=== PATIENT | male | born 1940 | race Caucasian/White ===

== ENCOUNTER → 2025-02-19 08:51 | Outpatient (REF) | payer MEDICARE, OTHER, SELFPAY | LOC: RCS 08:51 | PROVIDERS: ATTENDING PHYSICIAN Internal Medicine Cardiovascular Disease; FAMILY PHYSICIAN Family Medicine | DX: I35.0 Nonrheumatic aortic (valve) stenosis (principal); R06.09 Other forms of dyspnea | CPT/HCPCS: 93017; 93350 ==

== ENCOUNTER 2025-02-22 08:05 | Day surgery (SDC) | payer MEDICARE, OTHER, SELFPAY ==
[2025-02-22] VITALS (23 sets, daily range): BP systolic 100–152; BP diastolic 58–132; BMI 29.2
[2025-02-22 08:45] LABS: Glucose - Point of Care 114 mg/dl (70-99)
[2025-02-22 08:51] LABS: INR 1.68
--- NOTE | 2025-02-22 12:47 | ITS.CL.CATH ---
Senior Environmental Scientist - Catheterization
Cardiac Catheterization
Procedure Report:
CARDIAC CATHETERIZATION REPORT
Date of Procedure: 02/22/2025
Referring: Jesu Lara D.O.
Indication: Aortic valve stenosis, abnormal dobutamine stress echocardiogram, heart failure with reduced ejection fraction.
PROCEDURE:
1. Right heart catheterization.
2. Coronary angiography.
3. Left heart catheterization.
4. Dobutamine challenge.
5. Successful intravascular ultrasound of the ostial left main coronary artery.
A total of [ ] minutes of procedural/moderate sedation was utilized. An independent medical authorization specialist was present to assist with and help manage the patient's level of consciousness and physiologic status.
ACCESS:
1. 6 Polish right common femoral artery using a modified Seldinger technique with a micropuncture kit under ultrasound guidance. Ultrasound image obtained.
2. 6 Polish right common femoral vein using a modified Seldinger technique with a micropuncture kit under ultrasound guidance. Ultrasound image obtained.
CATHETERS:
1. 6 Polish thermodilution balloon wedge.
2. 5 Polish JL 4.
3. 5 Polish JR4.
4. 6 Polish JL 4 guiding catheter.
HEMODYNAMIC DATA
Weight (kg): 97.5
AO (s/d/x, mmHg): 138/60/93
LV (s/x, mmHg): 158/26
PCWP (a/v/x, mmHg): 35/50/32
PA (s/d/x, mmHg): 65/38/47
RV (s/x, mmHg): 65/17
RA (a/v/x, mmHg): 24/20/18
SVC SvO2 (%): 57.5
IVC SvO2 (%): Not obtained.
RA SvO2 (%): Not obtained.
RV SvO2 (%): Not obtained.
PA SvO2 (%): 54.7
SaO2 (%): 97.5
Hbg (g/dL): 15.0
DARLING
CO (L/min): 3.59
CI (L/min/m2): 1.63
Thermodilution
CO (L/min): Not performed.
CI (L/min/m2): Not performed.
TPG (mmHg): 15
PVR (Castellon Units): 4.18
SVR (dynes*seconds*cm^-5): 1672
AVO2 Diff (Volume %): 8.73
AV gradient (x, mmHg): 22.0
AV area (cm2): 0.58
MV gradient (x, mmHg): Not obtained.
MV area (cm2): Not obtained.
LEFT VENTRICULOGRAPHY: Not performed.
AORTOGRAPHY: Not performed.
CORONARY ANGIOGRAPHY
Dominance: Right.
Left Main: Extremely long, trifurcating vessel. There is an ill-defined, 40-50% lesion in the ostium of the vessel with catheter dampening on engagement. There is an additional 20-30% lesion in the distal half of the left main coronary artery.
LAD: Normal size vessel giving rise to a large single diagonal which bifurcates into 2 daughter vessels, the more medial of which parallels the true LAD. There is no coronary artery disease.
Ramus: Medium size vessel with no coronary artery disease.
Circumflex: Normal size, nondominant vessel giving rise to a small obtuse marginal before terminating as a small left posterolateral branch. There is no coronary artery disease.
RCA: Large size, dominant vessel with a large posterolateral arcade that supplies the majority of the inferolateral wall. There is a densely calcified, 80% lesion in the ostium of the vessel. The remainder of the vessel is free of disease.
INTERVENTIONS
1. Successful intravascular ultrasound of the left main coronary artery.
2. Successful dobutamine challenge to assess myocardial reserve and aortic valve stenosis severity.
Narrative:
The decision was made to perform intracoronary imaging. The diagnostic catheter was removed over a wire and exchanged for 6 Polish JL 4 guiding catheter. The guiding catheter was advanced into the ascending aorta and seated in the left main
coronary artery. Immediate dampening of the catheter was observed. Additional heparin was given to obtain an ACT greater than 250 seconds. After crossing the lesion with a coronary wire, an IVUS catheter was advanced through the guiding catheter
and into the ostium of the artery. Ring down was performed once the imaging crystal was no longer inside of the guiding catheter. The catheter was disengaged to allow for full imaging of the ostium of the artery and to allow adequate blood flow
into the coronary. The IVUS catheter was advanced into the distal left main coronary artery. Intravascular ultrasound was performed in a retrograde fashion using a slow pullback. Intracoronary imaging demonstrated several areas of atherosclerosis
with notable narrowing in the true ostium of the vessel. Minimal luminal area was documented at 5.7 mm�.
Given the borderline findings of aortic valve stenosis with low ejection fraction in the absence of coronary artery disease, the decision was made to proceed with dobutamine challenge.
Dobutamine was started at 5 mcg/kg/min. After 5 minutes, pulmonary artery pressure, cardiac output/index and LV/aortic pressure gradients were measured.
Dobutamine was increased to 10 mcg/kg/min. After 5 minutes, measurements were repeated.
Dobutamine was increased to 20 mcg/kg/min. After 5 minutes, measurements were repeated.
Dobutamine was turned off. Pullback of the dual-lumen catheter was performed confirming fidelity of measurement. Findings are detailed below.
DOBUTAMINE CHALLENGE
Dobutamine 5 mcg/kg/min:
CO (L/min): 3.9
CI (L/min/m2): 1.8
AV gradient (x, mmHg): 25.2
AV area (cm2): 0.85
Dobutamine 10 mcg/kg/min:
CO (L/min): 4.71
CI (L/min/m2): 2.14
AV gradient (x, mmHg): 32.0
AV area (cm2): 0.70
Dobutamine 20 mcg/kg/min:
CO (L/min): 5.22
CI (L/min/m2): 2.37
AV gradient (x, mmHg): 34.0
AV area (cm2): 0.75
Closure Device: Manual pressure for the femoral artery and vein.
Radiation dose (mGy): 687
DAP (cm2.Gy): 38.092
Fluoroscopy time (minutes): 11.5
CONCLUSIONS:
1. Right dominant circulation with a densely calcified, 80% lesion in the ostium of the RCA and a poorly visualized, 40-50% ostial left main coronary artery lesion with dampening on catheter engagement and minimal luminal area of 5.7 mm� on
intravascular ultrasound.
2. Severely elevated filling pressures (LVEDP = 26 mmHg, PCWP = 32 mmHg at 97.5 kg).
3. Moderate to severe low-flow, low gradient aortic valve stenosis with myocardial reserve (mean gradient 34 mmHg, aortic valve area 0.75 cm�, cardiac index 2.37 L/min/m� at dobutamine 20 mcg/kg/min).
4. 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
RECOMMENDATIONS:
1. Expectant management after cardiac catheterization via right common femoral approach.
2. Limited weight bearing for one week.
3. Difficult situation as the patient has multiple reasons why his cardiac function may have fallen off. We will start with TAVR CTA to assess if he is a candidate for percutaneous valve replacement.
4. If he is a candidate, we we will discuss revascularization strategy. The patient is an ideal candidate for left main coronary artery PCI given the ostial nature of his disease. He would also require Shockwave and PCI of the ostial RCA.
5. If he is not a candidate for transcatheter aortic valve, we will discuss surgical options for valve versus strictly a revascularization strategy.
6. Aggressive secondary prevention with high-dose, high potency statin.
7. Continue aggressive diuresis as his blood pressure will permit.
8. OMT/GDMT as hemodynamics will tolerate.
Copy to: Jesu Lara D.O., Joe Smith M.D.
Morales Sánchez DO, FACC, FACP
[2025-02-22 13:28] LABS: ACT-LR - POC 279 Seconds (116-155)
[2025-02-22 14:34] LABS: ACT-LR - POC 232 Seconds (116-155)
[2025-02-22 15:04] LABS: ACT-LR - POC 218 Seconds (116-155)
[2025-02-22 15:09] LABS: ACT-LR - POC > 397 Seconds (116-155)
--- NOTE | 2025-02-22 15:10 | PTCARENOTE ---
RN spoke to Dr Sánchez in regards to ACT range for pulling sheaths. At [address] Sánchez ok with pulling both sheaths at 1500. Dr Sánchez requested a 30 minute hold. ACT 218 at 1500.
--- NOTE | 2025-02-22 15:23 | CONSULT.STRU ---
Consultation
-
Date/Time Consultation Requested: 02/22/2025
Date/Time Consultation Performed: 02/22/2025
Requesting Provider: Dr. Morales Sánchez
Performing Provider: SAULO Juárez
Reason for Consultation: CAD/Aortic stenosis
Patient History
Physicians
Family Physician: Dr. Joe Wolff
Outpatient Printing Plate Setter: Dr. Jesu Lara
Primary Printing Plate Setter: Dr. Jesu Lara
History of Present Illness
Mr. Laura is a very pleasant and well appearing 84yo male here today for cardiac cath as part of his workup for recent acute on chronic heart failure and . He started noticing significant JONES beginning the end of Dec and in January he was
hospitalized at [facility] with elevated INR (10.2) heart failure exacerbation. His echocardiogram on 01/20 was significant for EF: 43%, moderate MR, Severe PG/MG33.4/17.3, EL: 0.8, , Moderate AI, severe TR and PAP 47mmHg. He then underwent
a DSE on 02/19/2025 which showed EF 45-50% with increase to 60% with dobutamine and findings consistent with moderate . On cath today he was found to have significant disease. After speaking with Dr. Sánchez it was decided to proceed with CT TAVR
scan to assess candidacy for TAVR before proceeding with addressing CAD. Overall Mr. Laura remains active. He denies chest pain, palpitations, PND, orthopnea. He has only recently noted some peripheral edema.
Reviewed the pathophysiology of aortic stenosis with the patient and his . Explained the treatment options of SAVR/CABG and TAVR/PCI. Explained the TAVR evaluation process including follow up BMP, CT TAVR scan, CT surgery consult and Heart Team
discussion. Provided with script for BMP next week, script and appointment for CT TAVR, Consult appointment with Dr. Saravia and a copy of the TAVR education booklet with contact information. Allowed for and answered questions.
Past Medical History
Past Medical History: Arrhythmias (NSVT), Atrial Fib, CAD, CHF, JONES, GERD, HTN, Hypercholesterolemia, Hypothyroidism, NIDDM, Valvular Disease (Moderate MR, Severe , moderate AI, Severe TR) and Other (Neuropathy)
Past Surgical History
Past Surgical History: Other (PPM 2004, Gen change 2019, Cardiac ablation 2006, left toe amputation 2023)
Dental History
Regular dental care: [facility]
Family History
Mother: at Age (80s, cause unknown)
Father: at Age (76yo, COPD)
Social History
Alcohol: None
Drug: None
Tobacco: Non-Smoker
Personal:
Living: With Spouse
Employment: Retired (power truck driver)
Allergies
Allergy/AdvReac Type Severity Reaction Status Date / Time
ashley inhibitors Allergy Swelling Uncoded 02/22/25 08:33
lisinopril Allergy Swelling Uncoded 02/22/25 08:33
Home Medications
�Medication �Instructions �Recorded �Confirmed �Type
aspirin 81 mg chewable tablet 81 mg PO DAILY 02/22/25 02/22/25 History
atorvastatin 40 mg tablet 40 mg PO DAILY 02/22/25 02/22/25 History
esomeprazole magnesium 20 mg 20 mg PO DAILY 02/22/25 02/22/25 History
capsule,delayed release (Nexium)
furosemide 80 mg tablet 80 mg PO DAILY 02/22/25 02/22/25 History
latanoprost 0.005 % eye drops 1 drp ophthalmic (eye) QPM 02/22/25 02/22/25 History
levothyroxine 88 mcg capsule 88 mcg PO DAILY 02/22/25 02/22/25 History
metformin 500 mg tablet 500 mg PO BID 02/22/25 02/22/25 History
metoprolol succinate 50 mg 50 mg PO DAILY 02/22/25 02/22/25 History
tablet,extended release 24 hr
(Toprol XL)
spironolactone 25 mg tablet 12.5 mg PO DAILY 02/22/25 02/22/25 History
vitamins A,C,M-eoiu-zzzqft 2,148 2 tab PO BID 02/22/25 02/22/25 History
mcg-113 mg-45 mg-17.4 mg tablet
(PreserVision AREDS)
warfarin 5 mg tablet 2.5 mg PO Q OTHER DAY 02/22/25 02/22/25 History
warfarin 5 mg tablet 5 mg PO Q OTHER DAY 02/22/25 02/22/25 History
STS%
STS %: AVR/CAB.1%
Review of Systems
-
History Source: Patient and Family
General: Reports No Symptoms
HEENT: Reports No Symptoms
Respiratory: Reports JONES (last 2 months it is more noticable); Denies Cough or PND
Cardiac: Reports CAD and Edema (bilateral LE); Denies Chest Pain or Palpitations
Abdomen/GI: Reports Reflux and Indigestion; Denies Nausea, Vomiting or Diarrhea
: Reports No Symptoms; Denies Dysuria or Hematuria
Musculoskeletal: Reports No Symptoms
Skin: Reports No Symptoms
Neurological: Reports Other (neuropathy); Denies Headaches, Syncope or Dizzy
Vascular: Reports No Symptoms
Physical Exam
Vital Signs
Temp 97.8 F 02/22/25 07:55
Temp route: Oral 02/22/25 07:55
Pulse 72 02/22/25 14:15
Resp Rate 13 02/22/25 14:15
Blood pressure 129/76 02/22/25 14:00
Blood pressure extremity used: Left upper arm 02/22/25 07:55
Position: Sitting 02/22/25 07:55
MAP (cuff-Kaela Monitor) 92 02/22/25 14:00
SaO2 95 02/22/25 13:30
Oxygen Mode of Delivery Room air 02/22/25 07:55
Can the patient verbally communicate their pain? Yes 02/22/25 12:30
Actual Weight 97.522 kg 02/22/25 08:31
Body Mass Index (BMI) 29.2 02/22/25 08:31
Labs
PT 20.0 Sec (11.4-14.6) H 02/22/25 08:36
02/07/2025:
BUN/Creat: 23/1.34
GFR: 53
01/26/2025
H/H: 13.3/41.3
WBC: 10.5
Platelets: [id number]
Diagnostic Studies
02/19/2025 Dobutamine Stress Echocardiogram:
CONCLUSIONS
At rest, there is moderate aortic stenosis. Mildly reduced ejection fraction
at 45-50% with mild hypokinesis of the distal inferior and apical inferoseptal
wall.
With Dobutamine infusion, EF globally increases to
60% by visual estimation.
The wall motion abnormalities in the distal inferior and apical inferoseptal
thomson consistent with infarction. Additionally at high dose infusion, the
distal anteroseptal thomson appear hypokinetic consistent with ischemia.
At all infusion levels, findings are consistent with moderate aortic stenosis.
No prior study available for comparison.
02/22/2025 Cardiac Cath:
CORONARY ANGIOGRAPHY
Dominance: Right.
Left Main: Extremely long, trifurcating vessel. There is an ill-defined, 40-50% lesion in the ostium of the vessel with catheter dampening on engagement. There is an additional 20-30% lesion in the distal half of the left main coronary artery.
LAD: Normal size vessel giving rise to a large single diagonal which bifurcates into 2 daughter vessels, the more medial of which parallels the true LAD. There is no coronary artery disease.
Ramus:Medium size vessel with no coronary artery disease.
Circumflex: Normal size, nondominant vessel giving rise to a small obtuse marginal before terminating as a small left posterolateral branch. There is no coronary artery disease.
RCA: Large size, dominant vessel with a large posterolateral arcade that supplies the majority of the inferolateral wall. There is a densely calcified, 80% lesion in the ostium of the vessel. The remainder of the vessel is free of disease.
INTERVENTIONS
1. Successful intravascular ultrasound of the left main coronary artery.
2. Successful dobutamine challenge to assess myocardial reserve and aortic valve stenosis severity.
Narrative:
The decision was made to perform intracoronary imaging. The diagnostic catheter was removed over a wire and exchanged for 6 Ghanaian JL 4 guiding catheter. The guiding catheter was advanced into the ascending aorta and seated in the left main
coronary artery. Immediate dampening of the catheter was observed. Additional heparin was given to obtain an ACT greater than 250 seconds. After crossing the lesion with a coronary wire, an IVUS catheter was advanced through the guiding catheter
and into the ostium of the artery. Ring down was performed once the imaging crystal was no longer inside of the guiding catheter. The catheter was disengaged to allow for full imaging of the ostium of the artery and to allow adequate blood flow
into the coronary. The IVUS catheter was advanced into the distal left main coronary artery. Intravascular ultrasound was performed in a retrograde fashion using a slow pullback. Intracoronary imaging demonstrated several areas of atherosclerosis
with notable narrowing in the true ostium of the vessel. Minimal luminal area was documented at 5.7 mm�.
Given the borderline findings of aortic valve stenosis with low ejection fraction in the absence of coronary artery disease, the decision was made to proceed with dobutamine challenge.
Dobutamine was started at 5 mcg/kg/min. After 5 minutes, pulmonary artery pressure, cardiac output/index and LV/aortic pressure gradients were measured.
Dobutamine was increased to 10 mcg/kg/min. After 5 minutes, measurements were repeated.
Dobutamine was increased to 20 mcg/kg/min. After 5 minutes, measurements were repeated.
Dobutamine was turned off. Pullback of the dual-lumen catheter was performed confirming fidelity of measurement. Findings are detailed below.
Exam
General: Well Developed, Well Nourished, No Apparent Distress and Comfortable
HEENT: Normocephalic, Moist Mucous Membranes, PERRLA and EOMI
Neck: Trachea Midline
Respiratory: Clear; Negative Wheezes, Crackles or Rhonchi
Cardiac: S1/S2, Regular Rhythm and Murmur (Grade I_II/ FERNANDA)
GI: Soft, Non Tender, Non Distended and Normal Bowel Sounds
Rectal: Deferred by Provider
Skin: Warm and Dry
Neuro: AO x 3 and Nonfocal/Grossly Intact
Extremities: Lower Level Edema (trace left LE)
Psych: Calm
Assessment / Plan
-
Procedure Type:�CABG + AVR
Perioperative Outcome Estimate %
Operative Mortality 15.1%
Morbidity & Mortality 31.2%
Stroke 1.9%
Renal Failure 11.1%
Reoperation 3.95%
Prolonged Ventilation 21.9%
Deep Sternal Wound Infection 0.231%
Long Hospital Stay (>14 days) 22.3%
Short Hospital Stay (<6 days)* 11.4%
Severe Aortic stenosis:
����������� Continue evaluation for aortic stenosis as outpatient
����������� BMP next week at [facility]
����������� CT TAVR scan 03/08/2025 at
����������� CT surgery consult with Dr. Saravia� 03/18/2025
����������� Dental Clearance
����������� Heart team discussion at [facility]
Acute on Chronic HF:
Daily weights
Low Na diet
Diuresis per cardiology/ GDMT
CAD:
Heart healthy diet
Statin/ASA/BB
CT surgery evaluation and Heart team discussion- PCI vs CABG
Data Reviewed
-
EKG: Report Reviewed by me
Water Treatment Plant Supervisor: Report Reviewed by me, Discussed with Physician, Discussed with Patient and Discussed with Family
Echo: Report Reviewed by me, Discussed with Physician, Discussed with Patient and Discussed with Family
Labs: Labs Reviewed by me, Discussed with Patient and Discussed with Family
Old Records: Reviewed ([facility] admission summary, cardiology consult notes)
Total Time Spent with Patient (in minutes): 35
== END 2025-02-22 18:27 | disposition home or self-care (01) ==
LOC: CATH 08:05
PROVIDERS: ATTENDING PHYSICIAN Internal Medicine Cardiovascular Disease
DX: I11.0 Hypertensive heart disease with heart failure (principal); I50.22 Chronic systolic (congestive) heart failure; I27.20 Pulmonary hypertension, unspecified; I25.10 Atherosclerotic heart disease of native coronary artery without angina pectoris; R94.39 Abnormal result of other cardiovascular function study; I08.2 Rheumatic disorders of both aortic and tricuspid valves; G62.9 Polyneuropathy, unspecified; I47.20 Ventricular tachycardia, unspecified; E03.9 Hypothyroidism, unspecified; E11.9 Type 2 diabetes mellitus without complications; E78.00 Pure hypercholesterolemia, unspecified; I48.91 Unspecified atrial fibrillation; Z79.84 Long term (current) use of oral hypoglycemic drugs; Z79.82 Long term (current) use of aspirin; Z79.890 Hormone replacement therapy; Z79.899 Other long term (current) drug therapy; Z88.8 Allergy status to other drugs, medicaments and biological substances
CPT/HCPCS: 82962; 85347; 85610; 92978; 93460; 93463; C1753; C1769; C1894; Q9967

== ENCOUNTER → 2025-03-08 08:36 | Outpatient (REF) | payer MEDICARE, OTHER, SELFPAY | LOC: RAD 08:36 | PROVIDERS: ATTENDING PHYSICIAN Nurse Practitioner Adult Health; FAMILY PHYSICIAN Family Medicine | DX: I35.0 Nonrheumatic aortic (valve) stenosis (principal) | CPT/HCPCS: 74174; 75572; Q9967 ==

== ENCOUNTER 2025-04-01 09:41 | Day surgery (SDC) | payer MEDICARE, OTHER, SELFPAY ==
[2025-04-01] VITALS (24 sets, daily range): BP systolic 128–170; BP diastolic 62–90
[2025-04-01] MEDS: NSS 1000 IV ×2 (10:40→16:05)
[2025-04-01 10:43] LABS: Blood Urea Nitrogen 30 mg/dl (9-20); Calcium 9.7 mg/dl (8.4-10.2); Carbon Dioxide 32 mmol/L (22-30); Chloride 101 mmol/L (98-107); Glucose 125 mg/dl (70-99); Potassium 4.4 mmol/L (3.5-5.1); Sodium 141 mmol/L (135-145); eGFR 49.56
[2025-04-01 10:44] LABS: PT 17.4 Sec (11.4-14.6)
--- NOTE | 2025-04-01 12:58 | PTCARENOTE ---
Report given to Quinn SHAFFER
--- NOTE | 2025-04-01 15:41 | ITS.CL.ANGIO ---
Handyman - Angioplasty
Angioplasty
Procedure Report:
CARDIAC CATHETERIZATION REPORT
Date of Procedure: 04/01/2025
Referring: Jesu Lara D.O.
INDICATION: Staged PCI prior to TAVR, ischemic cardiomyopathy, heart failure with reduced ejection fraction.
PROCEDURE:
1. Coronary angiography.
2. Successful IVUS guided PCI of the ostial left main coronary artery.
3. Successful intracoronary lithotripsy of the ostial right coronary artery.
4. Successful IVUS guided PCI of the ostial right coronary artery.
A total of 78 minutes of procedural/moderate sedation was utilized. An independent chief medical officer was present to assist with and help manage the patient's level of consciousness and physiologic status.
ACCESS:
1. 7 [place] right common femoral artery using a modified Seldinger technique with a micropuncture kit under ultrasound guidance.
CATHETERS:
1. 7 [place] JL 4 guiding catheter.
2. 7 [place] JR4 guiding catheter.
HEMODYNAMIC DATA
Weight (kg): 94.0
AO (s/d/x, mmHg): 152/71/108
LV (s/x mmHg): Not obtained.
LEFT VENTRICULOGRAPHY: Not performed.
CORONARY ANGIOGRAPHY
Dominance: Right.
Left Main: Extremely long, trifurcating vessel. There is a 70% lesion in the ostium of the left main coronary artery. There is an additional 20-30% lesion in the distal half of the left main coronary artery.
LAD: Normal size vessel giving rise to a large single diagonal which bifurcates into 2 daughter vessels, the more medial of which parallels the true LAD. There is no coronary artery disease.
Ramus: Medium size vessel with no coronary artery disease.
Circumflex: Normal size, nondominant vessel giving rise to a small obtuse marginal before terminating as a small left posterolateral branch. There is no coronary artery disease.
RCA: Large size, dominant vessel with a large posterolateral arcade supplying the majority of the inferolateral wall. There is a densely calcified, 80% lesion in the ostium of the RCA.
INTERVENTION(S)
1. Successful IVUS guided PCI of the 70% ostial left main coronary artery ([employer] [place] 4.5 x 12 BRIAN, postdilated with a 4.5 NC balloon) with reduction in stenosis to 0%, maintaining NITISH-3 flow.
2. Successful intracoronary lithotripsy of the densely calcified 80% ostial right coronary artery lesion (Shockwave 3.5 x 12 lithotripsy balloon).
3. Successful IVUS guided PCI of the 80% ostial RCA lesion ([employer] [place] 4.0 x 15 BRIAN, postdilated with a 4.0 x 12 NC balloon, followed by a 4.5 x 12 NC balloon to 16 oli) with reduction in stenosis to 10%, maintaining NITISH-3 flow.
Narrative:
The decision was made to proceed with percutaneous coronary intervention. The 7Fr JL 4 guiding catheter was advanced to the aortic root and seated in the left main coronary artery, with immediate dampening of pressure. Additional heparin was given
and a Power Turn Flex wire was advanced into the distal LAD. The catheter was subsequently disengaged from the artery with normalization of pressure. A BMW wire was advanced into the left coronary cusp and curved into the ascending aorta to act as
a bumper wire.
The decision was made to perform intracoronary imaging. An IVUS catheter was advanced through the guiding catheter and into the ostium of the artery. Ring down was performed once the imaging crystal was no longer inside of the guiding catheter. The
IVUS catheter was advanced into the distal left main. Intravascular ultrasound was performed in a retrograde fashion using a slow pullback. Intracoronary imaging demonstrated moderate disease in the distal and mid vessel. There was a fibrotic
severe lesion in the ostium. Vessel measurements were obtained.
The decision was made to direct stent. A [employer] [place] 4.5 x 12 drug-eluting stent was advanced. Meticulous care was taken while positioning the stent, ensuring that the lesion was covered while the stent did not protrude into the aorta
too much. Once we were satisfied with our position, the stent was deployed at 12 atmospheres. The stent balloon was removed. A 4.5 x 8 noncompliant balloon was advanced into the stent and the stent was postdilated to 14 atmospheres.
IVUS was repeated, demonstrating excellent stent apposition and confirming excellent placement of the stent with the stent terminating immediately after entering the aorta. There was a small area of stent underexpansion in the mid section. The 4.5
x 8 noncompliant balloon was readvanced into the ostial left main stent and the stent was postdilated to 18 oli. The noncompliant balloon was withdrawn and the bumper wire had been removed which allowed a guide to sit in the left main coronary
artery. Angiography was performed in orthogonal views, confirming good stent expansion and an excellent angiographic result. The coronary wire was withdrawn and the guide was disengaged from the artery.
We then turned our attention to the ostial RCA lesion. The 7 [place] JL 4 guiding catheter was removed over a wire and a 7Fr JR4 guiding catheter was advanced to the aortic root and seated in the right coronary artery. Additional heparin was given
and a Power Turn Flex wire was advanced into the distal RCA. A run-through wire was advanced into the right coronary cusp, again serving as a bumper wire.
The decision was made to proceed with plaque modification. A Shockwave 3.5 x 12 coronary lithotripsy balloon was advanced over the wire and into the ostial RCA lesion. The balloon was sterilely connected to the controller and prepped to negative
pressure. Meticulous care was taken while positioning the shockwave balloon. Once in satisfactory position, the balloon was inflated to 4 oli. After confirming good contact with the vessel wall, 10 pulses were delivered. After delivering 10
pulses, the balloon was inflated to 6 oli then deflated. The entire lesion was treated in a similar manner for total of 12 rounds.
The Shockwave balloon was withdrawn and the IVUS catheter was readvanced into the right coronary artery. IVUS was performed in retrograde fashion demonstrating a densely calcified lesion in the ostium of the vessel. Vessel sizing was performed.
The decision was made to direct stent. A [employer] [place] 4.0 x 15 drug-eluting stent was advanced. Meticulous care was taken while positioning the stent, ensuring that the lesion was covered and that the stent protruded into the aorta by
1�2 cells. Once we were satisfied with our position, the stent was deployed at 12 atmospheres. The stent balloon was removed. A 4.0 x 12 noncompliant balloon was advanced into the stent and the stent was postdilated to 16 atmospheres. Angiography
and cine angiography demonstrated dimpling of the stent, consistent with some underexpansion. A 4.5 x 12 noncompliant balloon was advanced and the underexpanded segment was postdilated to 16 oli with some improvement. IVUS was repeated, confirming
that there was some modest underexpansion in the densely calcified section of the vessel. The 4.5 x 12 noncompliant balloon was readvanced and the stent was postdilated to 18 oli. The noncompliant balloon was withdrawn.
Angiography was performed in orthogonal views, confirming good stent expansion and an excellent angiographic result with a 10% residual stenosis. The coronary wire was withdrawn and the guide was disengaged from the artery. The catheter was removed
over a standard J-wire.
Closure Device: The 7 [place] sheath was sutured in place for manual pressure to be applied after ACT is <180 seconds.
Radiation (mGy): 1217.57
DAP (cm2.Gy): 81.6826
Fluoroscopy time (minutes): 21.3
CONCLUSIONS
1. Right dominant circulation with a 70% lesion in the ostium of the left main coronary artery status post successful IVUS guided PCI ([employer] [place] 4.5 x 12 BRIAN, postdilated with a 4.5 NC balloon), a 20-30% lesion in the distal half of
the left main coronary artery and an 80%, densely calcified ostial right coronary lesion status post successful intracoronary lithotripsy (shockwave 3.5 x 12 lithotripsy balloon) and IVUS guided PCI ([employer] [place] 4.0 x 15 BRIAN, postdilated
with a 4.0 NC balloon throughout and a 4.5 NC balloon in the proximal margin) with reduction in the left main stenosis to 0% in the ostial right coronary artery stenosis to 10%, maintaining NITISH-3 flow in both vessels.
2. Moderate to severe low-flow, low gradient aortic valve stenosis with myocardial reserve on prior study.
RECOMMENDATIONS:
1. Expectant management after cardiac catheterization via right common femoral approach.
2. Limited weight bearing for one week.
3. Antithrombotic therapy with clopidogrel and warfarin for at least 12 months, possibly lifelong given the critical nature of the stents.
4. Aggressive secondary prevention with high-dose, high potency statin.
5. OMT/GDMT as hemodynamics will tolerate.
6. Continue TAVR evaluation.
7. Referral to cardiac rehab after TAVR has been completed.
Copy to: [ ]
Morales Sánchez DO, FACC, FACP
[2025-04-01 16:09] LABS: Glucose - Point of Care 103 mg/dl (70-99)
--- NOTE | 2025-04-01 16:45 | PTCARENOTE ---
Received pt from [facility] [employer]. Right femoral cath site dressing C.D.I with arterial sheath in place. Right pedal pulse present with doppler. A-line zeroed. V-paced with occ. AV pacing on the monitor. HR in the 60-70's. Informed pt to keep leg straight
and head on pillow. pt verbalizes understanding. Call max within reach.
[2025-04-01 17:10] LABS: ACT-LR - POC 213 Seconds (116-155)
[2025-04-01 17:56] LABS: Glucose - Point of Care 106 mg/dl (70-99)
[2025-04-01 18:38] LABS: ACT-LR - POC 170 Seconds (116-155)
[2025-04-01] MEDS: COUMADIN 5 MG PO (22:36)
[2025-04-01] MEDS: LIPITOR 40 MG PO (22:36)
[2025-04-01] MEDS: XALATAN OPHTHALMIC SOLUTION 1 DROP RIGHT EYE (22:37)
--- NOTE | 2025-04-02 00:06 | PTCARENOTE ---
Pt rec'd at change of shift lying flat in bed with arterial sheath in right femoral artery. ACT < 170 Sheath therefore pulled via manual pressure x 20 mins. Pt soham well. sandbag placed for 2 hrs as per PA's request. Remains on bedrest at this time.
voiding well in urinal. call max within reach.
[2025-04-02 02:57] VITALS: BP 137/64
[2025-04-02 03:16] VITALS: BMI 27.5
[2025-04-02 04:12] LABS: Hematocrit 37.4 % (39.0-52.0); Hemoglobin 12.3 g/dL (13.0-18.0); Mean Corp Hgb Conc. 32.9 g/dL (33.0-37.0); Mean Corpuscular Hgb 25.4 pg (27.0-31.0); Mean Corpuscular Volume 77.3 fL (80.0-94.0); Mean Platelet Volume 10.9 fL (7.4-10.4); Platelet Count 194 10^3/uL (130-400); Red Blood Cell Count 4.84 10^6/uL (4.70-6.10); Red Cell Dist. Width 17.1 % (11.5-14.5); White Blood Cell Count 10.5 10^3/uL (4.8-10.8)
[2025-04-02 04:29] LABS: INR 1.47; PT 18.3 Sec (11.4-14.6)
[2025-04-02 04:37] LABS: Blood Urea Nitrogen 30 mg/dl (9-20); Calcium 9.2 mg/dl (8.4-10.2); Carbon Dioxide 30 mmol/L (22-30); Chloride 104 mmol/L (98-107); Estimated Creatinine Clearance 50 ml/min; Glucose 113 mg/dl (70-99); HDL Cholesterol 38 mg/dl; LDL Cholesterol, Calculated 67 mg/dl; Potassium 4.3 mmol/L (3.5-5.1); Sodium 141 mmol/L (135-145); Total Cholesterol 121 mg/dl (50-199); Triglyceride 80 mg/dl (10-149); Very Low Density Lipoprotein 16 mg/dl (0-30); eGFR 59.63
[2025-04-02] MEDS: SYNTHROID 88 MCG PO (07:09)
[2025-04-02 08:19] VITALS: BP 131/80
[2025-04-02] MEDS: TOPROL XL 50 MG PO (08:53)
[2025-04-02] MEDS: LOW STRENGTH ASPIRIN 81 MG PO (08:53)
[2025-04-02] MEDS: PROTONIX 40 MG PO (08:53)
[2025-04-02] MEDS: PLAVIX 75 MG PO (08:53)
[2025-04-02] MEDS: ALDACTONE 12.5 MG PO (08:58)
--- NOTE | 2025-04-02 09:52 | W.PN.CD ---
Today's Communication / Plan
-
ASA, coumadin, plavix on discharge; then stop ASA once INR 2
dicharge planning
Impression / Plan
-
85 yo male with PMH of CAD, moderate/severe is admitted following PCI.
# CAD s/o PCI to ostial LM and RCA
-discussed with interventional cards: plan is ASA, coumadin, plavix on discharge; then stop ASA once INR 2
# Moderate/severe
-continue outpatient TAVR eval
# Chronic HFrEF
-stable, euvolemic
-cont lasix 80mg PO daily
Physical Exam
Vital Signs/Labs
Vital Signs
Temp Pulse Resp BP Pulse Ox
98.0 F 84 18 137/64 98
04/02/25 08:21 04/02/25 04:00 04/02/25 08:21 04/02/25 02:57 04/02/25 08:21
04/01/25 04/02/25 04/03/25
06:59 06:59 06:59
Actual Weight 92 kg
04/02/25 03:07
04/02/25 03:07
PT 18.3 Sec (11.4-14.6) H 04/02/25 03:07
INR 1.47 04/02/25 03:07
Triglycerides 80 mg/dl (10-149) 04/02/25 03:07
LDL Cholesterol, Calc 67 mg/dl 04/02/25 03:07
VLDL Cholesterol, Calc 16 mg/dl (0-30) 04/02/25 03:07
HDL Cholesterol 38 mg/dl 04/02/25 03:07
Physical Exam
Constitutional: No acute distress and Comfortable
EENT: Moist mucous membranes
Cardiovascular: Pedal edema is absent, JVD pressure is normal, Rhythm/rate is irregular and Systolic murmur present
Respiratory: Respiratory effort normal and Lungs clear to auscul.
Neuro/Psych: AO x 3
Data Reviewed
-
Date of Service: April 02, 2025
EKG: Other (V paced)
Labs: Labs Reviewed by me
--- NOTE | 2025-04-02 11:01 | W.DS.TRANS ---
DC Summary - Healthcare Corporate Account Director
-
Discharge Instructions:
Discharge Diagnosis/Procedures Angioplasty and stent x1 to Left Main artery
Lithotripsy with angioplasty and stent x1 to
Right Coronary artery
Diet Low Cholesterol,Diabetic, Carb Controlled
Driving Restrictions No driving for 24 hours
Blood Work INR on 04/04- if INR>2.0, please stop
aspirin. If it is <2.0, continue aspirin and
recheck 04/09- same rules apply
Other Services Cardiac Rehab
Instructions:
Stand-Alone Forms: DC Instructions- Cath/EP Lab
Changes to Home Medications: Yes
Discharge Medications:
DC Medications w/original date entered in [email or web address]
atorvastatin 40 mg tablet 40 mg PO QPM 02/22/25
esomeprazole magnesium 20 mg capsule,delayed release (Nexium) 20 mg PO DAILY 02/22/25
furosemide 80 mg tablet 80 mg PO DAILY 02/22/25
latanoprost 0.005 % eye drops 1 drp RIGHT EYE HS 02/22/25
levothyroxine 88 mcg capsule 88 mcg PO DAILY 02/22/25
metformin 500 mg tablet 500 mg PO BID 02/22/25
metoprolol succinate 50 mg tablet,extended release 24 hr (Toprol XL) 50 mg PO DAILY 02/22/25
spironolactone 25 mg tablet 12.5 mg PO DAILY 02/22/25
vitamins A,C,G-dvzz-teswqp 2,148 mcg-113 mg-45 mg-17.4 mg tablet (PreserVision AREDS) 2 tab PO BID 02/22/25
warfarin 5 mg tablet 2.5 mg PO SUTUWETHSA 02/22/25
warfarin 5 mg tablet 5 mg PO MOFR 02/22/25
aspirin 81 mg chewable tablet 81 mg PO DAILY #1 tab 04/01/25
clopidogrel 75 mg tablet 75 mg PO DAILY #30 tabs 04/01/25
Home Medication Changes
NEW: plavix
STOP: aspirin aftre INR >2.0
Pending Results: No
--- NOTE | 2025-04-02 11:37 | CM ---
Chart reviewed. Patient is independent of ADLS, lives with his in a 1 STH, 0 RHIANNA, ambulates with a walking stick. Plan is for the patient to return home. CM to follow
[2025-04-02 12:13] VITALS: BP 129/72
[2025-04-02 12:17] VITALS: BP 129/72
[2025-04-03 08:23] LABS: ACT-LR - POC 347 Seconds (116-155)
[2025-04-03 08:23] LABS: ACT-LR - POC 363 Seconds (116-155)
[2025-04-03 08:35] LABS: ACT-LR - POC > 397 Seconds (116-155)
== END 2025-04-02 13:50 | disposition home or self-care (01) ==
LOC: CATH 09:41
PROVIDERS: Nurse Practitioner; ATTENDING PHYSICIAN Internal Medicine Cardiovascular Disease
DX: I25.10 Atherosclerotic heart disease of native coronary artery without angina pectoris (principal); E11.22 Type 2 diabetes mellitus with diabetic chronic kidney disease; E78.5 Hyperlipidemia, unspecified; I08.2 Rheumatic disorders of both aortic and tricuspid valves; I13.0 Hypertensive heart and chronic kidney disease with heart failure and stage 1 through stage 4 chronic kidney disease, or unspecified chronic kidney disease; I25.5 Ischemic cardiomyopathy; I44.7 Left bundle-branch block, unspecified; I47.20 Ventricular tachycardia, unspecified; I48.0 Paroxysmal atrial fibrillation; I49.3 Ventricular premature depolarization; I50.22 Chronic systolic (congestive) heart failure; K21.9 Gastro-esophageal reflux disease without esophagitis; N18.31 Chronic kidney disease, stage 3a; Z79.01 Long term (current) use of anticoagulants; Z79.02 Long term (current) use of antithrombotics/antiplatelets; Z79.899 Other long term (current) drug therapy; Z79.82 Long term (current) use of aspirin; Z79.890 Hormone replacement therapy
CPT/HCPCS: 93458; 92978; 92979; 92972; 99152; 99153; C1761; 80048; 80061; 82962; 85027; 85610; 93005; C1725; C1753; C1769; C1874; C1887; C1894; C9600; Q9967

== ENCOUNTER 2025-05-02 06:41 | Inpatient (IN) | payer MEDICARE, OTHER, SELFPAY ==
[2025-04-23 08:15] VITALS: BMI 29.6
--- NOTE | 2025-04-23 08:54 | HPS.HSE ---
Family Physician
-
Family Physician: Joe Smith
Chief Complaint
-
JONES
PreTAVR work up
History of Present Illness
Mr. Ruff is a very pleasant and well appearing 84 yom with a past medical history significant for , HFmrEF, TR, NSVT, afib, PPM, HTN, and hyperlipidemia. He started noticing significant JONES beginning the end of Dec and in January he was
hospitalized at [facility] with elevated INR (10.2) and heart failure exacerbation. His echocardiogram on 01/20/2025 is notable for EF: 43%, moderate MR, Severe PG/MG33.4/17.3, EL: 0.8, , Moderate AI, severe TR and PAP 47mmHg. A DSE on
02/19/2025 demonstrated EF 45-50% with increase to 60% with dobutamine and findings consistent with moderate . Cardiac catheterization from 02/22/2025 showed significant disease. Reviewed with Dr. Sánchez and the heart team, everyone is agreeable to
proceed with PCI to RCA and LM.. Overall Mr. Laura remains active. He denies chest pain, palpitations, PND, orthopnea. He has only recently noted some peripheral edema. The heart team concurred to proceed with TF TAVR utilizing a 29 mm S3.
Assessed patient in pre-admission testing and confirmed medication list. Last dose warfarin will be Tuesday04/28/2025, he will continue taking his plavix and will add 81 mg aspirin. He will also take his levothyroxine the morning of TAVR. He will
arrive at 0730 to the [facility]. Reviewed the risks of the procedure as discussed in consult with Dr. Saravia including stroke and vascular injury. Informed patient he ill get a phone call from the heart team on Tuesday (04/30) to confirm time and
location of arrival. Allowed for and answered questions to the best of my ability.
Medical History
Past Medical History
Past Medical History: Reports Arrhythmia (a-fibNSVT), CHF (HFmrEF), HTN, Hypothyroidism, NIDDM, Valvular Disease (Aortic stenosis) and Other (hyperlipidemia, neuropathy)
Past Surgical History: Reports Cardiac (PPM, recent BRIAN to RCA and LM, ablation) and Orthopedic (toe amputation)
Social History
Tobacco: Non-smoker
Alcohol: None
Drug: None
Employment: Retired
Family History
Family History: Cancer
Allergies / Home Medications
Allergies reflects when Allergies were last updated in [employer].
Home Medications with original date entered in [employer]
Aspirin 81(Aspirin) 81 MG Tablet Delayed Release 1 tablet Orally Once a day
Atorvastatin Calcium 40 MG Tablet 1 tablet Orally Once a day
Esomeprazole Magnesium 40 MG Capsule Delayed Release 1 capsule 1/2 to 1 hour before morning meal Orally Once a day , Notes to Pharmacist: nexium
Ferrous Sulfate 325 (65 Fe) MG Tablet 1 tablet Orally Three times a Week
Furosemide 80 MG Tablet 1 tablet Orally Once a day
Latanoprost-Timolol Maleate 0.005-0.5 % Solution 1 drop into affected eye Ophthalmic Once a day
Levothyroxine Sodium 88 MCG Tablet 1 tablet in the morning on an empty stomach Orally Once a day
metFORMIN HCl ER 500 MG Tablet Extended Release 24 Hour 1 tablet with evening meal Orally twice a day
Metoprolol Succinate ER 50 MG Tablet Extended Release 24 Hour 1 tablet Orally Once a day
PreserVision AREDS 2(Multiple Vitamins-Minerals) - Capsule as directed Orally
Spironolactone 25 MG Tablet 1/2 tablet Orally once a dayWarfarin Sodium 5 MG Tablet 1 tablet Orally every other day
Warfarin Sodium 2.5 MG Tablet 1 tablet Orally every other day
Clopidogrel 75 mg daily
Allergy/Medication List:
ACEI
LISINOPRIL
Review of Systems
-
History Source: Patient
Constitutional: Reports Fatigue
EENT: Reports No Symptoms
Respiratory: Reports Other (JONES)
Cardiac: Reports No Symptoms
Abdomen/GI: Reports No Symptoms
: Reports No Symptoms
Musculoskeletal: Reports No Symptoms
Skin: Reports No Symptoms
Neurological: Reports No Symptoms
Endocrine: Reports No Symptoms
Hematologic/Lymphatic: Reports No Symptoms
Psych: Reports No Symptoms
Physical Exam
Physical Exam
General: Well Developed, Well Nourished and No Apparent Distress
HEENT: PERRLA
Respiratory: Other (Decreased right base, otherwise CTA)
Cardiac: Murmur (III/ FERNANDA)
Breast: Deferred by me
GI: Soft, Non Tender and Non Distended
Rectal: Deferred by Provider
Genito-urinary: Deferred by me
Skin: Warm and Dry
Neuro: Awake, Alert and Oriented
Psych: Calm
Data Reviewed
-
CT Scan: Report Reviewed by me and Discussed with Physician (Reviewed with the heart team)
Medical Tests (Nuc Med, Echo, EKG etc): Report Reviewed by me and Discussed with Physician (Reviewed echocardiogram and cardiac catheterization with the heart team)
Lab Data: Labs Reviewed by me
Old Records: Reviewed
Impression/Plan
-
IMPRESSION/PLAN:
Aortic Stenosis
Hold warfarin for TAVR x 3 days. Aspirin + Plavix while warfarin held. Resume warfarin post TAVR
POD#1/#30 Echocardiogram
Cardiac rehab consult
Labs
-
Labs:
WBC 10.6 10^3/uL (4.8-10.8) 04/23/25 08:26
RBC 5.19 10^6/uL (4.70-6.10) 04/23/25 08:26
Hgb 12.8 g/dL (13.0-18.0) L 04/23/25 08:26
Hct 40.1 % (39.0-52.0) 04/23/25 08:26
Plt Count 251 10^3/uL (130-400) 04/23/25 08:26
Sodium 141 mmol/L (135-145) 04/23/25 08:26
Potassium 4.1 mmol/L (3.5-5.1) 04/23/25 08:26
Chloride 103 mmol/L (98-107) 04/23/25 08:
Carbon Dioxide 27 mmol/L (22-30) 04/23/25 08:26
BUN 28 mg/dl (9-20) H 04/23/25 08:26
Creatinine 1.5 mg/dL (0.7-1.3) H 04/23/25 08:
eGFR 45.62 04/23/25 08:26
Glucose 116 mg/dl (70-99) H 04/23/25 08:26
Calcium 9.3 mg/dl (8.4-10.2) 04/23/25 08:26
Whn-L-Gbdknfqekek Pept 00867 pg/ml 04/23/25 08:26
Albumin 3.9 g/dl (3.5-5.0) 04/23/25 08:26
[2025-04-23 08:57] LABS: % Basophils 0.7 % (0-2); % Eosinophils 0.7 % (0-6); % Immature Granulocytes 0.4 % (0-0.5); % Lymphocytes 6.7 % (20.5-51.1); % Monocytes 10.9 % (1.7-9.3); % Neutrophils 80.6 % (42.2-75.2); Absolute Basophils 0.1 10^3/uL (0-0.2); Absolute Eosinophils 0.1 10^3/uL (0-0.7); Absolute Lymphocytes 0.7 10^3/uL (1.2-3.4); Absolute Monocytes 1.2 10^3/uL (0.1-0.6); Absolute Neutrophils 8.6 10^3/uL (1.4-6.5); Hematocrit 40.1 % (39.0-52.0); Hemoglobin 12.8 g/dL (13.0-18.0); Mean Corp Hgb Conc. 31.9 g/dL (33.0-37.0); Mean Corpuscular Hgb 24.7 pg (27.0-31.0); Mean Corpuscular Volume 77.3 fL (80.0-94.0); Mean Platelet Volume 11.1 fL (7.4-10.4); Nucleated Red Blood Cells % 0 % (-); Platelet Count 251 10^3/uL (130-400); Red Blood Cell Count 5.19 10^6/uL (4.70-6.10); Red Cell Dist. Width 18.9 % (11.5-14.5); White Blood Cell Count 10.6 10^3/uL (4.8-10.8)
[2025-04-23 09:03] LABS: Urine Albumin 3+ (Neg - Trace); Urine Bilirubin Negative (Negative); Urine Character Clear (Clear); Urine Color Yellow; Urine Glucose Negative (Negative); Urine Ketone Negative (Negative); Urine Leukocyte Negative (Negative); Urine Nitrite Negative (Negative); Urine Occult Blood 1+ (Negative); Urine Specific Gravity 1.025 (<1.030); Urine Urobilinogen 1+ (Neg - 1+)
[2025-04-23 09:08] LABS: APTT 42.8 Sec (23.4-35.0); INR 3.32; PT 33.5 Sec (11.4-14.6)
[2025-04-23 09:17] LABS: Urine Granular Cast 0-2 /LPF (0)
[2025-04-23 09:19] LABS: Urine Red Blood Cell 0-2 /HPF (0-2)
[2025-04-23 09:19] LABS: NT-proBNP 13100 pg/ml
[2025-04-23 09:20] LABS: Urine Bacteria Few (Negative)
[2025-04-23 09:47] LABS: ALT (SGPT) 32 U/L (0-50); AST (SGOT) 29 U/L (17-59); Albumin 3.9 g/dl (3.5-5.0); Alkaline Phosphatase 298 U/L (38-126); Blood Urea Nitrogen 28 mg/dl (9-20); Calcium 9.3 mg/dl (8.4-10.2); Carbon Dioxide 27 mmol/L (22-30); Chloride 103 mmol/L (98-107); Direct Bilirubin 0.7 mg/dl (0.0-0.4); Estimated Creatinine Clearance 39 ml/min; Glucose 116 mg/dl (70-99); Potassium 4.1 mmol/L (3.5-5.1); Sodium 141 mmol/L (135-145); Total Bilirubin 2.4 mg/dl (0.2-1.3); Total Protein 6.3 g/dl (6.3-8.2); eGFR 45.62
[2025-04-23 10:35] LABS: Glycohemoglobin (HgbA1c) 6.2 % (4.0-5.6)
--- NOTE | 2025-04-23 16:18 | CM ---
spoke to pt in PAT's, he is prev indep, lives with his and adult cognitively disabled son, in a 1 story home with no steps to enter. he has the TAVR educ book, soap and instructions. he is agreeable to a f/u visit from the ct transitional care
nurses after dc. cm role explained and all questions answered.
[2025-05-02] VITALS (42 sets, daily range): BP systolic 88–164; BP diastolic 56–101; BMI 29.7
[2025-05-02 08:00] LABS: Glucose - Point of Care 108 mg/dl (70-99)
[2025-05-02 08:30] LABS: INR 2.45
--- NOTE | 2025-05-02 08:45 | PTCARENOTE ---
Pt's INR today is 2.45. Dr Sánchez made aware and in to see pt. FFP ordered. Dr Sánchez states pt ok to proceed with procedure.
--- NOTE | 2025-05-02 08:54 | W.CVOR.SURPR ---
CVOR Surgeon Immed Pre Op
-
I have examined this patient prior to performance of the scheduled procedure.
The patient's condition is unchanged from the time of the dictated/written History and
Physical and the patient is able to undergo the scheduled procedure.
Seen in lab nurse holding for transfemoral TAVR.
Full rescue.
[2025-05-02] MEDS: ANCEF 10 IV ×2 (09:36)
[2025-05-02 10:21] LABS: ACT-LR - POC 170 Seconds (116-155)
[2025-05-02 10:38] LABS: ACT-LR - POC > 397 Seconds (116-155)
--- NOTE | 2025-05-02 10:44 | W.PN.CT.SURG ---
CT Surgery Operative Note
-
OPERATIVE REPORT
Preoperative Diagnosis: Severe aortic valve stenosis, symptomatic
Postoperative Diagnosis: Same
Procedure(s) Performed: Right trans femoral TAVR with a 29 mm nominal Hollins TAVR valve
Date of Procedure: 05/02/2025
Comorbidities:
1. Severe aortic stenosis, symptomatic
2. Acute on chronic systolic diastolic heart failure with elevated LVEDP to 30 pre-TAVR deployment
Cardiac Surgeon: Joe Saravia MD, MS
Derrick Operator: Morales Sánchez MD
Anesthesia: Conscious Sedation and Local Analgesia
EBL: 100cc
Products: none
Implant: 29 mm Hollins VANNESSA TAVR valve, serial #[id number]
Indication(s) for Procedures: 85-year-old male with symptomatic severe low-flow low gradient aortic stenosis. CT-TAVR protocol revealed acceptable anatomy for TAVR access and implantation.
Start time: 0951hrs
Deployment time: 1028hrs
End time: 1039hrs
Radiation Dose (mGy): 435.41
DAP (cm2.Gy): 49.0082
Fluoroscopy time (minutes): 6.2
Contrast volume (ml): 98
TAVR gradient (mmHg): 3mmHg
Heparin Dose: 8000+6000units
Protamine Dose: 50mg
Final Valve Positionin/20
Findings: Preoperative LVEF was 45% and was 45% following TAVR without inotropic support. Function was overall normal without regional wall motion abnormalities or dyskinesia. The aortic valve was well seated without detectable PVL and mean gradient
across the new valve was 3mmHg. The patient has a chicken ranch pacemaker and return to his paced rhythm post TAVR deployment while on the systems testing laboratory technician table. There was successful placement of sonometer, nominal, TAVR valve without acute complications. LVEDP
pre-TAVR deployment was found to be 30 mmHg indicating acute on chronic systolic diastolic heart failure with volume overload.
Access:
1. Device -right common femoral artery, perclose x 2
2. Pigtail -left common femoral artery [+ 6Fr angioseal]
3. Transvenous Pacer -left common femoral vein
Description of Procedure: The patient was taken to the systems testing laboratory technician. Their identity and procedure to be performed were verified and they were positioned supine on the systems testing laboratory technician table. Induction via conscious sedation. The patient was then prepped and
draped from chin to thigh in a sterile fashion. A preoperative time-out was performed with all members of the team present. Arterial and venous access was performed using fluoroscopy and ultrasound guidance with micropuncture and Seldinger
technique. Two perclose devices were used on the device side followed by access to the aorta with a stiff wire to facilitate E-sheath placement. Heparin was given. A stiff straight wire and AL-1 catheter was used to cross the aortic valve. An LVEDP
was then measured here and found to be 30 mmHg. The stiff wire was exchanged for an extra stiff coiled tip wire. The valve was prepped and mounted on to the device carrier. An ACT of >250 was achieved. We verified x 3 that the valve was mounted in
the correct orientation with the skirt of the valve directed toward the tip of the device carrier. We advanced the device into the descending thoracic aorta where the valve was them mounted onto the balloon under fluoroscopy. The device was flexed
and advanced over the arch into the root and positioned across the aortic valve. Contrast fluoroscopy was used to visualize the prosthesis across the valve and to guide positioning. A pigtail catheter in the RCC as used as a guide. We aimed to have
the bottom of the device marker at the annular hinge point. The device sheath was pulled back. We performed a quick pre-deployment time out. The pacer was turned on and had capture. Blood pressure fell accordingly, angiography was done to verify the
intended final placement and the valve was deployed with 5 seconds of rapid pacing to nominal volume. The balloon was deflated and the pacer was turned off. We had recovery of vitals. The device carrier was unflexed and positioned back in the
descending thoracic aorta. A transthoracic echocardiogram was performed. The device was removed from the E-Sheath maintaining wire access followed by removal of the E-sheath as we cinched down the perclose devices. There was acceptable hemostasis.
The pigtail was withdrawn into the descending/abdominal and completion aortogram with runoff run-off angiography was performed. There was no stenosis or dissection of bilateral iliofemoral systems. There was acceptable hemostasis of bilateral groins
and manual pressure was held following wire removal. Low dose protamine was administered after checking another ACT.
All instrument, sponge, and needle counts were confirmed to be correct x 2 at the end of the operation. The patient was transferred to the cardiac intensive care unit in stable condition.
I, Dr. Joe Saravia, was present, scrubbed for, and performed all critical elements of this procedure.
Joe Saravia MD
Cardiothoracic Surgeon
[facility]
This operative dictation was created using the [employer] dictation system. Please excuse any grammatical, typographical, or 'sound alike' errors
--- NOTE | 2025-05-02 11:13 | ITS.CL.TAVR ---
[employer] Sales Counter Manager - TAVR Report
TAVR PRocedure
Procedure Report:
TRANSCATHETER AORTIC VALVE REPLACEMENT REPORT
Date: 05/02/2025
Referring physician: Jesu Lara D.O.
Preop diagnosis: Severe aortic valve stenosis.
Postop diagnosis: Severe aortic valve stenosis, acute on chronic heart failure with reduced ejection fraction.
Procedure: Transcatheter aortic valve replacement (TAVR) using a #29 Hollins MARGO S3 Ultra THV.
Operators: Morales Sánchez DO, Joe Saravia M.D.
Findings: Severely calcified and stenotic aortic valve.
Anesthesia: Conscious sedation was provided by the anesthesia staff.
Estimated blood loss: Negligible.
Complications: None.
Condition: Stable
Procedure:
The patient was brought to the cardiac equipment operator/laborer after consent and was prepped and draped in standard sterile fashion. Conscious sedation was provided by the anesthesia staff. After a 'Time Out,' bilateral common femoral arteries and the left
common vein were access using a modified Seldinger technique with a micropuncture kit under ultrasound guidance. A 6 [place] sheath was placed in the left femoral vein. Angiography performed through the micropuncture sheath confirmed satisfactory
arterial placement in the left common femoral artery. The micropuncture sheath was replaced with a 6Fr sheath in the left ARTIFICIAL MARBLE WORKER. Angiography through the micropuncture kit confirmed satisfactory arterial placement in the right common femoral artery.
The right ARTIFICIAL MARBLE WORKER was dilated with an 8FR dilator and preclosed with two Perc-Close devices. An 8Fr sheath was placed in the RCFA. A temporary pacing wire was advanced through the left femoral vein and into the right ventricle. The pacemaker
demonstrated good capture and was set to back up. A 5Fr pigtail catheter was advanced through the left femoral sheath and seated in the right coronary cusp. Angiography confirmed co-planar angles.
An AL-1 catheter was advanced through the 8Fr sheath, the J wire was exchanged for an Amplatz Extra-Stiff wire and the catheter and the 8 Fr sheath was removed. A 18 Fr dilator was advanced over the Extra-Stiff wire to the descending aorta. The
dilator was removed. The 16 Fr Hollins E-Sheath was inserted over the wire and into the descending aorta. Heparin 8000 units was given. The MARGO S3 was prepared on the back table. Orientation was confirmed by both physicians. The AL-1
catheter was re-advanced through the E-sheath to the level of the ascending aorta. The Extra-Stiff wire was removed and a soft tip straight wire was advanced through the AL-1. The straight tip wire was used to cross the aortic valve and the
catheter was advanced into the left ventricle. The straight wire was removed. Left ventricular pressure was measured. An Amplatz Extra-Stiff wire with curved proximal end was advanced through the catheter and into the left ventricular apex. The
catheter was removed. ACT was checked and confirmed to be > 250 seconds.
The valve was advanced over the Extrastiff wire and into the descending aorta. The balloon was pulled back and the valve was mounted on the balloon. The valve was advanced through the aortic arch and into the aortic valve annulus. The pusher
device was withdrawn to allow for balloon expansion. Low volume aortography confirmed good position of the valve. The valve was deployed during rapid ventricular pacing. Echocardiography and aortography confirmed a good result with trace aortic
valve insufficiency and a 2 mmHg mean gradient. The valve deployment system was removed. The Hollins E-Sheath was then removed and hemostasis obtained with the two Perc-Close sutures. Final angiography demonstrated no evidence of ileofemoral
dissection/perforation and good runoff below the common femoral artery. The pacemaker and the pigtail catheter were removed. The left femoral artery sheath was removed using a 6 [place] Angio-Seal. The left femoral venous sheath was removed and
manual pressure was applied with excellent hemostasis. Protamine 50 mg was given.
Radiation
Dose (mGy): 435.41
DAP (cm2.Gy): 49.0082
Fluoroscopy time (minutes): 6.2
TAVR Echo Gradient (mmHg): 2
LV (s/x, mmHg): 129/29
TAVR Cath Gradient (mmHg): Not obtained.
Conclusions:
1. Successful placement of #29 Margo S3 Ultra aortic valve via right transfemoral approach with no acute complications.
2. Acute on chronic heart failure with elevated filling pressures (LVEDP = 29 at 96.2 kg).
Morales Sánchez DO, FACC, FACP
Copy to: Jesu Lara D.O., Joe Smith M.D.
[2025-05-02 11:43] LABS: Glucose - Point of Care 97 mg/dl (70-99)
--- NOTE | 2025-05-02 13:15 | PTCARENOTE ---
Rec'd pt from computer lab assistant. L groin is c/d/i. No bleeding/hematoma noted. R groin w/ external pressure device on. 70mmHg in femostop. Pt reports having hx of 'restless leg syndrome.' Reviewed activity restrictions w/ pt and verbalizes understanding. Pt
w/ b/l doppler pedal pulses. Pt has no complaints pain/discomfort/pain. Pt sating 99% on RA. Tele- [employer]. HR 70-90s. Currently in bed; call winter w/in reach.
--- NOTE | 2025-05-02 13:24 | CM ---
Reviewed chart. Mr Ruff is in the operating room today. Prior to admission he resides with his spouse and disabled son in a one story home without any steps to enter. Prior to admission he was independent with ambulation and adls. He has a
prescription plan. Medical work-up in progress. The discharge plan is to return home with with his spouse, disabled son and a home visit by the Transitional Care Nurse when medically stable.
[2025-05-02] MEDS: LASIX 20 MG IV (13:39)
[2025-05-02 15:58] LABS: Glucose - Point of Care 82 mg/dl (70-99)
[2025-05-02] MEDS: OCEAN, SALINE MIST 1 SPRAYS NASAL (16:14)
[2025-05-02] MEDS: LIPITOR 40 MG PO (17:06)
[2025-05-02] MEDS: ANCEF 5 IV (17:06)
--- NOTE | 2025-05-02 18:00 | PTCARENOTE ---
Femostat off. Pt continues to have slow ooze from R groin. Renea Tucker aware and at bedside. Manual pressure held for 15 min. R Groin redressed and c/d/i. PT/INR ordered. Labs collected and sent.
[2025-05-02 18:38] LABS: INR 2.01; PT 23.3 Sec (11.4-14.6)
[2025-05-02] MEDS: MEPHYTON 5 MG PO (19:23)
[2025-05-03] VITALS (16 sets, daily range): BP systolic 95–156; BP diastolic 59–84; PULSE 77; O2SAT 93–98
[2025-05-03] MEDS: XALATAN OPHTHALMIC SOLUTION 1 DROP RIGHT EYE ×2 (00:30→22:07)
--- NOTE | 2025-05-03 00:47 | PTCARENOTE ---
Assumed care of the pt @ 1900. Pt is AAOx3 A/V paced on the monitor vss Rt groin dressing oozing Left groin dressing c/d/i. B/L dp pulses by Doppler. Call max within reach.
--- NOTE | 2025-05-03 01:09 | PTCARENOTE ---
@ 2130 assessed rt groin site the dressing was saturated. Manual pressure held and Jeannie Ding at bedside to hold manual pressure f/b sandbag for 1 hour. VSS dressing is c/d/i no hematoma no bleeding.
--- NOTE | 2025-05-03 02:55 | W.PN.CT ---
Today's Communication / Plan
-
-pod #1
-got 5 mg Vit K on 05/02 d/t R groin bleeding, required femstop, improved. Held Coum on 05/03 until review
-R groin with oozing overnight - resolved with manual pressure and sandbag x 1hr. Both groins are soft, nontender, no hematoma b/l
-appears SOB with conversation. pOx 98% on RA. LVEDP was 30 pre-TAVR - diuresed with 20 iv Lasix (takes 80 mg at home), has some urinary retention - consider diuresis today
-in a-fib 70s-80s with v-pacing and some intrinsic conduction overnight
-K 3.1- gave 4 KCL po
-Cr 1.2 (1.5 preop)
-Echo today
-encourage IS, OOB
Assessment / Plan
-
- Severe aortic valve stenosis, symptomatic- s/p Right trans femoral TAVR with a 29 mm nominal Hollins TAVR valve on 05/02/25, pod #1
- Intraop TTE: Preop LVEF was 45% and was 45% following TAVR without inotropic support. Normal LV fxn without regional wma or dyskinesia. The aortic valve was well seated without detectable PVL and mean gradient across the new valve was 3mmHg.
- Acute on chronic systolic diastolic heart failure with elevated LVEDP to 30 pre-TAVR deployment- diuresed with 20 iv Lasix (UO 550)
- s/p pacer
- DM II with neuropathy
- HTN/HLD
- Hypothyroidism
- CAD
- hx NSVT
- A-fib, on Coumadin preop
- GERD, colon polyps
- Prostate CA, s/p chemo
- Urinary retention
- R eye glaucoma
- Cataracts
- Hard of hearing
- Toe resection
Discussed patient care with: Nursing and Care Team
Subjective
-
Date of Service: May 03, 2025
Objective Data
-
PT 23.3 Sec (11.4-14.6) H 05/02/25 18:20
INR 2.01 05/02/25 18:20
APTT 42.8 Sec (23.4-35.0) H 04/23/25 08:26
Vital Signs
Vital Signs
Temp Pulse Resp BP Pulse Ox
98 F 76 18 126/62 98
05/03/25 00:00 05/03/25 00:30 05/03/25 00:00 05/03/25 00:30 05/03/25 00:00
CT Intake/Output/Weight
05/02/25 05/02/25 05/03/25
06:59 18:59 06:59
Intake Total 1345 / 1345
Output Total 550 / 950 400 / 950
Balance 795 / 395 -400 / 395
SaO2: 98
Physical Exam
-
General: AOx3 (hard of hearing)
Cardiovascular: Irregular rate & rhythm, No Murmurs and No Rub
Respiratory: Rales and Decreased Breath Sounds (no wheeze)
Incision: Other (both groins are soft, nontender, no hematoma b/l. R groin with some oozing earlier - resolved after manual pressure)
Extremities: Edema +1
Abdomen: soft, nontender, nondistended, + bowel sounds
Data Reviewed
-
Lab Results: Results Reviewed
Medications: Active Meds Reviewed
Chest X-Ray: Report Reviewed and Image Reviewed
ECG: Report Reviewed and Image Reviewed
[2025-05-03 03:44] LABS: Hematocrit 38.9 % (39.0-52.0); Hemoglobin 12.2 g/dL (13.0-18.0); Mean Corp Hgb Conc. 31.4 g/dL (33.0-37.0); Mean Corpuscular Hgb 24.3 pg (27.0-31.0); Mean Corpuscular Volume 77.3 fL (80.0-94.0); Mean Platelet Volume 10.6 fL (7.4-10.4); Platelet Count 203 10^3/uL (130-400); Red Blood Cell Count 5.03 10^6/uL (4.70-6.10); Red Cell Dist. Width 19.2 % (11.5-14.5); White Blood Cell Count 9.8 10^3/uL (4.8-10.8)
[2025-05-03 03:48] LABS: INR 1.89; PT 21.9 Sec (11.4-14.6)
[2025-05-03 03:59] LABS: Blood Urea Nitrogen 24 mg/dl (9-20); Calcium 8.5 mg/dl (8.4-10.2); Carbon Dioxide 29 mmol/L (22-30); Chloride 106 mmol/L (98-107); Estimated Creatinine Clearance 47 ml/min; Glucose 91 mg/dl (70-99); Magnesium 1.8 mg/dl (1.6-2.3); Potassium 3.1 mmol/L (3.5-5.1); Sodium 140 mmol/L (135-145); eGFR 59.63
[2025-05-03] MEDS: SYNTHROID 88 MCG PO (05:08)
[2025-05-03] MEDS: KCL 40 MEQ PO ×2 (05:08→09:45)
[2025-05-03] MEDS: LASIX 40 MG IV (07:10)
--- NOTE | 2025-05-03 07:30 | W.PN.CD ---
Today's Communication / Plan
-
TTE ordered/pending.
Resume warfarin with 5 mg load, followed by 2.5 mg daily.
Start aspirin 81 mg daily while INR is < 2.
Continue diuresis.
Resume metformin tomorrow.
Discharge planning (likely tomorrow).
Impression / Plan
-
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
#Severe low flow, low gradient aortic valve stenosis
-Chronic, progressive.
-S/P #29 Hollins MARGO S3 TAVR via right femoral approach.
-Telemetry shows no issues. PPM in place.
-Right access site was oozing with an INR > 2. IV vitamin K given with resolution.
-Resume warfarin and clopidogrel for antithrombotic therapy in the setting of AF and recent PCI.
-TTE pending.
#CAD
-Chronic, stable.
-S/P PCI of the LMCA/RCA (04/01/2026).
-Antithrombotic therapy with clopidogrel/warfarin. Add aspirin until INR > 2.
#HFmEF
-Acute on chronic.
-LVEF 40-45%.
-Furosemide 40 mg IV given yesterday.
-GDMT
-Diuretics: Increase furosemide to 80 mg IV today, resume 80 mg PO tomorrow.
-Beta bev: Metoprolol succinate 50 mg daily.
-ACEI/ARB/ARNi: None.
-MRA: Resume spironolactone 12.5 mg daily.
-SGLT2i: None.
-ICD: PPM in place. ICD not indicated.
-Plan to continue diuresis and re-evaluate tomorrow.
#PAD
-Chronic.
-Wound noted by podiatry, requesting vascular surgery consult while hospitalized.
#NIDDM
-Chronic, stable.
-Resume metformin tomorrow.
#AF
-Chronic, stable.
-Currently in AF with pacing.
-Rate control with metoprolol.
-CHADS2-Vasc = 5 (CHF, Age x2, DM, vascular disease).
-FFP/Vit K given for elevated INR during procedure and post operative oozing.
-Resume warfarin - 5 mg tonight, then 2.5 mg daily (home dose). Goal INR 2.5.
Subjective/Interval History:
TAVR yesterday.
Oozing solved by vitamin K and pressure/sandbag.
Feels well.
DATA:
DSE, 02/19/2025:
CONCLUSIONS
At rest, there is moderate aortic stenosis. Mildly reduced ejection fraction
at 45-50% with mild hypokinesis of the distal inferior and apical inferoseptal
wall.
With Dobutamine infusion, EF globally increases to 60% by visual estimation.
The wall motion abnormalities in the distal inferior and apical inferoseptal
thomson consistent with infarction. Additionally at high dose infusion, the
distal anteroseptal thomson appear hypokinetic consistent with ischemia.
At all infusion levels, findings are consistent with moderate aortic stenosis.
No prior study available for comparison.
Cardiac Catheterization, 02/22/2025:
CONCLUSIONS:
1. Right dominant circulation with a densely calcified, 80% lesion in the ostium of the RCA and a poorly visualized, 40-50% ostial left main coronary artery lesion with dampening on catheter engagement and minimal luminal area of 5.7 mm� on
intravascular ultrasound.
2. Severely elevated filling pressures (LVEDP = 26 mmHg, PCWP = 32 mmHg at 97.5 kg).
3. Moderate to severe low-flow, low gradient aortic valve stenosis with myocardial reserve (mean gradient 34 mmHg, aortic valve area 0.75 cm�, cardiac index 2.37 L/min/m� at dobutamine 20 mcg/kg/min).
4. 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
Cardiac Catheterization/PCI, 04/01/2025:
CONCLUSIONS
1. Right dominant circulation with a 70% lesion in the ostium of the left main coronary artery status post successful IVUS guided PCI ([employer] [place] 4.5 x 12 BRIAN, postdilated with a 4.5 NC balloon), a 20-30% lesion in the distal half of
the left main coronary artery and an 80%, densely calcified ostial right coronary lesion status post successful intracoronary lithotripsy (shockwave 3.5 x 12 lithotripsy balloon) and IVUS guided PCI ([employer] [place] 4.0 x 15 BRIAN, postdilated
with a 4.0 NC balloon throughout and a 4.5 NC balloon in the proximal margin) with reduction in the left main stenosis to 0% in the ostial right coronary artery stenosis to 10%, maintaining NITISH-3 flow in both vessels.
2. Moderate to severe low-flow, low gradient aortic valve stenosis with myocardial reserve on prior study.
TAVR, 05/02/2025:
Conclusions:
1. Successful placement of #29 Margo S3 Ultra aortic valve via right transfemoral approach with no acute complications.
2. Acute on chronic heart failure with elevated filling pressures (LVEDP = 29 at 96.2 kg).
Intraprocedural TTE, 05/02/2025:
CONCLUSIONS
Normal left ventricular chamber size. Mild concentric left ventricular
hypertrophy. Mildly reduced left ventricular systolic function. Paradoxical
septal motion. LVEF 40%.
Normal right ventricular size and function. Pacer wire seen in right ventricle.
29 mm Hollins transcatheter aortic valve replacement. Peak/mean gradients
across the aortic valve are 5/3 mmHg respectively. No aortic regurgitation is
seen.
No pericardial effusion.
Physical Exam
Vital Signs/Labs
Vital Signs
Temp Pulse Resp BP Pulse Ox
36.6 C 76 14 134/73 97
05/03/25 03:19 05/03/25 06:45 05/03/25 03:19 05/03/25 05:00 05/03/25 03:19
05/01/25 05/02/25 05/03/25
11:59 11:59 11:59
Actual Weight 93.9 kg
05/03/25 03:27
05/03/25 03:27
PT 21.9 Sec (11.4-14.6) H 05/03/25 03:27
INR 1.89 05/03/25 03:27
APTT 42.8 Sec (23.4-35.0) H 04/23/25 08:26
Magnesium 1.8 mg/dl (1.6-2.3) 05/03/25 03:27
04/23/25
08:26
Idy-Q-[id number] Pept 49013
Physical Exam
Constitutional: No acute distress and Comfortable
EENT: Anicteric and Moist mucous membranes
Cardiovascular: Pedal edema is absent, JVD pressure is normal, Rhythm/rate is irregular, S1S2 is normal and Murmur/rub/gallop absent
Respiratory: Respiratory effort normal, Lungs clear to auscul., Wheeze Absent, Crackles Absent and Rhonchi Absent
GI: Soft, Distention absent, Flat, Non tender and Normal bowel sounds
Neuro/Psych: AO x 3
Other: Cath Site (Bilateral access sites are C/D/I.)
Data Reviewed
-
Date of Service: May 03, 2025
Medical Decision Making: Reviewed Test Results, Independent Historian Assessment and Test Interpretation
EKG: Tracing Personally Visualized and interpreted and Report Reviewed by me
Echo: Tracing Personally Visualized and interpreted and Report Reviewed by me
X-Ray/CT/US/MRI/NUC/PET: Image Personally Visualized and interpreted and Report Reviewed by me
Medical Tests (PFT, Pathology etc): Image Personally Visualized and interpreted and Report Reviewed by me
Labs: Labs Reviewed by me
Old Records: Reviewed
--- NOTE | 2025-05-03 07:34 | W.PN.ANS.POP ---
Anesthesia Post Operative
- Anesthesia Post Op Note
Vital Signs Stable-See Nursing Note: Yes
Airway Patent: Yes
Adequate Pain Control: Yes
Change in Mental Status: No
Current Postoperative Nausea & Vomiting: No
Anesthesia Complications: No
General Anesthetic Recall: No
Unplanned Admission: No
Post Op Hydration Adequate: Yes
[2025-05-03 08:06] LABS: Glucose - Point of Care 88 mg/dl (70-99)
[2025-05-03] MEDS: ALDACTONE 12.5 MG PO (09:41)
[2025-05-03] MEDS: PROTONIX 40 MG PO (09:41)
[2025-05-03] MEDS: TOPROL XL 50 MG PO (09:41)
--- NOTE | 2025-05-03 10:34 | PN.CDI ---
CDI
- -
CDI:
Physician Documentation Request
Admit Date: 05/02/25 06:[address] Surgery,
Clinical Indicators:
Patient admitted with severe aortic stenosis; s/p TAVR 05/02.
Home medications include: Plavix 75 mg po daily (last taken 05/02)
Aspirin 81 mg po daily (last taken 05/02)
Coumadin 2.5 MG Tablet 1 tablet Orally every other day (last taken 04/29)
05/03 PN, '-got 5 mg Vit K on 05/02 d/t R groin bleeding, required femstop, improved. Held Coum on 05/03 until review'
Please clarify the likely relationship between the right groin bleeding and above medication usage:
Yes, right groin bleeding is related to/associated with/exacerbated by Plavix/ASA/Coumadin use.
No, right groin bleeding is not related to/associated with/exacerbated by Plavix/ASA/Coumadin use but it is due to ___. (Please specify)
Unable to determine
Use of terms such as suspected, likely, concern for, or probable (associated with a specific diagnosis that is being evaluated, monitored, or treated as if it exists) are acceptable and can be coded in the inpatient setting, when documented at the
time of discharge.
Thank you,
MICHAEL Wright RN
CDI Specialist
available via tiger text
Please use your independent medical judgment in providing your response.
--- NOTE | 2025-05-03 10:38 | CM ---
Reviewed chart. Met with Mr. Ruff to review discharge plans. He states he is feeling well better and maybe able to go home soon. He states prior to admission he resides with spouse in a one story home without any steps to enter. He states
prior to admission he ambulate with a walking stick. He states he is independent with his ADLS. He states he has a walking stick, rolling walker and rollator at home. He states he has a prescription plan. We reviewed a home visit by the
Transitional Care Nurse. He is agreeable to a home visit. He states his spouse will be home to assist in his care if needed. Medical work-up in progress. The discharge plan is to return home with his spouse and a home visit by the Transitional
Care Nurse when medically stable.
--- NOTE | 2025-05-03 10:47 | PN.CDI ---
CDI
- -
CDI:
Physician Documentation Request
Admit Date: 05/02/25 06:[address] Surgery,
Clinical Indicators:
Patient admitted with severe aortic stenosis; s/p TAVR 05/02.
05/03 Potassium chloride 40 meq po.
Potassium level:
05/03/25
03:27
Potassium 3.1 L
Based on the above, could you clarify in the progress notes, the appropriate diagnosis, if significant, that supports the above abnormalities and additional evaluation, monitoring and/or treatment rendered:
Hypokalemia
Abnormal lab value, clinically insignificant
Other, please specify
Use of terms such as suspected, likely, concern for, or probable (associated with a specific diagnosis that is being evaluated, monitored, or treated as if it exists) are acceptable and can be coded in the inpatient setting, when documented at the
time of discharge.
Thank you,
MICHAEL Wright RN
CDI Specialist
available via tiger text
Please use your independent medical judgment in providing your response.
--- NOTE | 2025-05-03 10:58 | W.PN.UPDATE ---
Update Note
Progress Note Update
CDI query:
Hypokalemia
Yes, right groin bleeding is related to/associated with/exacerbated by Plavix/ASA/Coumadin use.
[2025-05-03] MEDS: LASIX 80 MG PO (12:08)
[2025-05-03 12:28] LABS: Glucose - Point of Care 155 mg/dl (70-99)
[2025-05-03 13:09] LABS: Blood Urea Nitrogen 22 mg/dl (9-20); Calcium 8.7 mg/dl (8.4-10.2); Carbon Dioxide 29 mmol/L (22-30); Chloride 103 mmol/L (98-107); Estimated Creatinine Clearance 47 ml/min; Glucose 157 mg/dl (70-99); Sodium 139 mmol/L (135-145); eGFR 59.63
[2025-05-03] MEDS: ASPIR LOW (ENTERIC COATED) 81 MG PO (15:32)
--- NOTE | 2025-05-03 16:22 | CON.VAS ---
Medical History
-
Chief Complaint: Left hallux ulcer
History of Present Illness:
Asked to see patient by his outpatient senior information security engineer
TAVR 05/02/25
Left hallux ulcer with some associated pain
No other wounds
Non palp pedal pulses on the left
Arterial studies personally reviewed - CYNTHIA unmeasurable due to noncompressible arteries. TBI severely reduced. Arterial duplex shows patent RADIATION THERAPY TECHNICIAN through pop.
Allergies / Home Medications
Allergy/AdvReac Type Severity Reaction Status Date / Time
PEDRO Inhibitors Allergy mouth Verified 05/02/25 07:39
swelling
lisinopril Allergy mouth Verified 05/02/25 07:39
swelling
�Medication �Instructions �Recorded �Confirmed �Type
atorvastatin 40 mg tablet 40 mg PO QPM 02/22/25 05/02/25 History
esomeprazole magnesium 20 mg 20 mg PO DAILY 02/22/25 05/02/25 History
capsule,delayed release (Nexium)
furosemide 80 mg tablet 80 mg PO DAILY 02/22/25 05/02/25 History
latanoprost 0.005 % eye drops 1 drp RIGHT EYE HS 02/22/25 05/02/25 History
levothyroxine 88 mcg capsule 88 mcg PO DAILY 02/22/25 05/02/25 History
metformin 500 mg tablet 500 mg PO BID 02/22/25 05/02/25 History
metoprolol succinate 50 mg 50 mg PO DAILY 02/22/25 05/02/25 History
tablet,extended release 24 hr
(Toprol XL)
spironolactone 25 mg tablet 12.5 mg PO DAILY 02/22/25 05/02/25 History
vitamins A,C,G-rtre-pakqsy 2,148 2 tab PO BID 02/22/25 05/02/25 History
mcg-113 mg-45 mg-17.4 mg tablet
(PreserVision AREDS)
clopidogrel 75 mg tablet 75 mg PO DAILY #30 tabs 04/01/25 05/02/25 Rx
azelastine 137 mcg (0.1 %) nasal 1 spray intranasal BIDPRN PRN 04/19/25 05/02/25 History
spray allergies
famotidine 20 mg tablet 20 mg PO HS 04/19/25 05/02/25 History
sodium chloride 0.65 % nasal spray 1 spray intranasal BIDPRN PRN 04/19/25 05/02/25 History
aerosol (Saline Nasal) allergies
warfarin 2.5 mg tablet 2.5 mg PO DAILY 04/19/25 05/02/25 History
aspirin 81 mg tablet,delayed 81 mg PO DAILY 05/02/25 05/02/25 History
release
ferrous sulfate 325 mg (65 mg 325 mg PO QPM 05/02/25 05/02/25 History
iron) tablet
Physical Exam
Vital Signs
Temp Pulse Resp BP Pulse Ox
97.9 F 73 20 128/78 96
05/03/25 15:10 05/03/25 12:30 05/03/25 15:10 05/03/25 12:11 05/03/25 15:10
Lab Results
05/03/25 03:27
05/03/25 12:22
Khv-X-Xyizpbohaau Pept [id number] pg/ml 04/23/25 08:26
Assessment / Plan
-
Left hallux ulcer and arterial studies suggesting infrapopliteal artery disease
Would likely benefit from angio
Can see him for short interval followup in the office and discuss mgmt strategies for this.
I have sent information to the office and we will set him up
[id number]
Vascular Surgery
[2025-05-03] MEDS: LIPITOR 40 MG PO (16:37)
[2025-05-03 17:18] LABS: Glucose - Point of Care 137 mg/dl (70-99)
--- NOTE | 2025-05-03 20:34 | PTCARENOTE ---
Received patient at change of shift. V/AV paced on the monitor, HR in the 70s. Bilateral groin dressings CDI, weak pedal pulses. No complaints from pt at this time, call max within reach.
[2025-05-03 22:03] LABS: Glucose - Point of Care 102 mg/dl (70-99)
[2025-05-04 03:06] VITALS: BP 117/98
[2025-05-04 03:58] LABS: INR 1.42; PT 17.6 Sec (11.4-14.6)
[2025-05-04 04:09] LABS: Blood Urea Nitrogen 21 mg/dl (9-20); Calcium 8.7 mg/dl (8.4-10.2); Carbon Dioxide 29 mmol/L (22-30); Chloride 105 mmol/L (98-107); Estimated Creatinine Clearance 52 ml/min; Glucose 99 mg/dl (70-99); Potassium 3.8 mmol/L (3.5-5.1); Sodium 139 mmol/L (135-145); eGFR > 60.00
[2025-05-04 04:13] LABS: Hematocrit 37.6 % (39.0-52.0); Hemoglobin 12.3 g/dL (13.0-18.0); Mean Corp Hgb Conc. 32.7 g/dL (33.0-37.0); Mean Corpuscular Hgb 24.2 pg (27.0-31.0); Mean Platelet Volume 10.4 fL (7.4-10.4); Platelet Count 194 10^3/uL (130-400); Red Blood Cell Count 5.08 10^6/uL (4.70-6.10); White Blood Cell Count 8.5 10^3/uL (4.8-10.8)
[2025-05-04] MEDS: SYNTHROID 88 MCG PO (05:00)
[2025-05-04 05:03] VITALS: BMI 29.9
--- NOTE | 2025-05-04 06:26 | W.PN.CT ---
Today's Communication / Plan
-
Plan:
-No major issues overnight. Hemodynamically and neurologically intact
-Received 5 mg Vit K on 05/02 d/t R groin bleeding, required femstop, improved. Held Coum on 05/03
-INR 1.42, was 1.89 yesterday. Will resume Coumadin today
-Per Cardiology, will stop ASA once INR > 2.0
-R groin is C/D/I with small stable right groin hematoma
-Repeat echo yesterday showed a well seated TAVR with PG/MG of 10/21, no AI, mod MR, EF 40%
-OOB into chair/Ambulate
-D/C home today
Assessment / Plan
-
- Severe aortic valve stenosis, symptomatic- s/p Right trans femoral TAVR with a 29 mm nominal Hollins TAVR valve on 05/02/25, pod #2
- Intraop TTE: Preop LVEF was 45% and was 45% following TAVR without inotropic support. Normal LV fxn without regional wma or dyskinesia. The aortic valve was well seated without detectable PVL and mean gradient across the new valve was 3mmHg.
- Acute on chronic systolic diastolic heart failure with elevated LVEDP to 30 pre-TAVR deployment- diuresed with 20 iv Lasix (UO 550)
- s/p pacer
- DM II with neuropathy
- HTN/HLD
- Hypothyroidism
- CAD
- hx NSVT
- A-fib, on Coumadin preop
- GERD, colon polyps
- Prostate CA, s/p chemo
- Urinary retention
- R eye glaucoma
- Cataracts
- Hard of hearing
- Toe resection
- PAD with left hallux ulcer
Discussed patient care with: Cardiology, Nursing, Respiratory Therapy, Pharmacy and Care Team
Subjective
-
Date of Service: May 04, 2025
No issues overnight. Denies CP/SOB/groin pain
Objective Data
-
Lab Results
05/04/25 03:16
05/04/25 03:16
PT 17.6 Sec (11.4-14.6) H 05/04/25 03:16
INR 1.42 05/04/25 03:16
APTT 42.8 Sec (23.4-35.0) H 04/23/25 08:26
Vital Signs
Vital Signs
Temp Pulse Resp BP Pulse Ox
97.8 F 75 18 117/98 96
05/04/25 03:29 05/04/25 04:15 05/04/25 03:29 05/04/25 03:06 05/04/25 03:29
CT Intake/Output/Weight
05/03/25 05/03/25 05/04/25
06:59 18:59 06:59
Intake Total 240 / 240
Output Total 600 / 1150 1350 / 1850 500 / 1850
Balance -600 / 195 -1110 / -1610 -500 / -1610
SaO2: 96 (RA)
Physical Exam
-
General: Awake, Oriented and AOx3
Cardiovascular: Irregular rate & rhythm (A/V paced)
Respiratory: Clear
Incision: Clean, Dry, Intact and Dressing Intact
Extremities: Other (+trace edema)
Data Reviewed
-
Lab Results: Results Reviewed
Medications: Active Meds Reviewed
Chest X-Ray: Report Reviewed and Image Reviewed
CT Scan: Report Reviewed and Image Reviewed
ECG: Report Reviewed and Image Reviewed
[2025-05-04 08:15] VITALS: BP 143/86
[2025-05-04] MEDS: ALDACTONE 12.5 MG PO (08:18)
[2025-05-04] MEDS: PROTONIX 40 MG PO (08:18)
[2025-05-04] MEDS: GLUCOPHAGE 500 MG PO (08:19)
[2025-05-04] MEDS: TOPROL XL 50 MG PO (08:19)
[2025-05-04] MEDS: ASPIR LOW (ENTERIC COATED) 81 MG PO (08:19)
[2025-05-04] MEDS: LASIX 80 MG PO (08:19)
--- NOTE | 2025-05-04 10:04 | PTCARENOTE ---
Pt is AOx3, no complaints of pain or discomfort. V-paced on tele monitor, VSS. Plan for discharge later today. Call max within reach.
--- NOTE | 2025-05-04 10:26 | W.DCSUMMARY ---
Addendum entered and electronically signed by SAULO Alfaro 05/04/25 14:31:
Patient will be discharged on Coumadin, Plavix plus ASA until INR>2
Addendum entered and electronically signed by SAULO Alfaro 05/04/25 11:52:
Next INR 05/07 with result to
Original Note:
Discharge Summary
Discharge Data
Date of Admission: 05/02/25
Date of Discharge: 05/04/25
-
Pending Results: No
Hospital Course
Primary care physician: Joe Smith
Outpatient edge inker: Jesu Lara
Inpatient consultants: [facility] Cardiology, Vascular surgery
Procedures:
1. TAVR
Primary Diagnosis:
1. severe aortic stenosis
Secondary Diagnoses:
1. Acute on chronic systolic/diastolic heart failure with elevated LVEDP to 30 pre-TAVR deployment
2. Atrial Fib on Coumadin
3. CAD s/p LAD/RCA stents
4. GERD
5. HTN
6. Hypercholesterolemia
7. Hypothyroidism
8. 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
9. Prostate CA, s/p chemo
10. R eye glaucoma
11. Hx MDT PPM
12. PAD (infrapopliteal artery disease) with left hallux ulcer
HPI: 85-year-old male was electively admitted on 05/02/2025 for TAVR.
Hospital course: Patient with noted INR of 3.32 in preadmission testing. INR repeated on day of surgery was 2.4. Patient underwent right transfemoral TAVR #29 mm Hollins Margo by Drs. Joe Saravia and Morales Sánchez. Postop ECG report reported AV
paced rhythm. Patient was diuresed with 20 mg of IV Lasix for an LVEDP of 30 pre-TAVR deployment. The right groin was oozy and manual pressure plus FemoStop applied for hemostasis. A repeat INR was 2.01 and vitamin K 5 mg was given. On
postoperative day #1, INR was 1.89 and Coumadin was held. Right groin was stable without bleeding/hematoma. Patient was diuresed with an additional 40 of IV Lasix plus his usual 80 mg of oral Lasix with total 24-hour urine output of 1835 cc.
Vascular surgery was consulted at the request of patient's hris manager to evaluate left hallux ulcer. Patient will follow-up as an outpatient with vascular surgery for infrapopliteal artery disease.Postoperative day #2, INR was 1.4 and Coumadin will
resume patient's usual dose of 2.5 mg daily per cardiology note, as we will continue until INR is greater than 2. Patient has INR monitored by Dr. Lara's office. Patient ambulated in hallways independently and is deemed stable for discharge
to home. He will follow-up with cardiology for his 30-day post TAVR echocardiogram.
Home medication changes:
Nexium changed to Protonix with Coumadin
Aspirin to continue until INR>2
Discharge Plan
-
Patient Disposition: Home (Routine Discharge)
Discharge Diagnosis/Procedures: TF TAVR
Condition: Good
Diet: Low Fat, Low Cholesterol and 2 Gram Sodium
Activity: As tolerated
Driving Restrictions: No driving for 1 week
Bathing Restrictions: OK to Shower
Others Tests: PLEASE CALL DR. LARA'S OFFICE TO SCHEDULE AN ECHOCARDIOGRAM TO BE COMPLETED IN ONE MONTH.
You will need lifelong preprocedural/predental antibiotic prophylaxis for any future dental procedures
Other Services: Cardiac Rehab
Wound Care: NO lotions, powders or creams to puncture sites
Specialty Instructions: Weigh Daily- Call MD for wt gain/loss 3 lbs overnight/5 lbs in 1 week
Activity Restrictions/Additional Instructions:
Please call to make appointments for Phase II Cardiac Rehab:
[facility]
[address]
[facility] [address]
[phone] [email or web address]
Referrals:
Walker Dawn III, MD [Active, Vascular Surgery] - 05/15/25 3:15 pm
Referral Note: Vascular surgery office visit
Jesu Lara DO [Non-Admitting Privileges, Cardiology] - 06/03/25 2:20 pm
Joe Smith MD [Family Provider, [facility]] - in four to six weeks
Referral Note: Please make an appointment in four to six weeks.
Prescriptions:
New
pantoprazole 40 mg Tablet,Delayed Release (Dr/Ec)
40 mg PO DAILY Qty: 30 2RF
Continued
metoprolol succinate [Toprol XL] 50 mg Tablet Extended Release 24 Hr
50 mg PO DAILY
spironolactone 25 mg Tablet
12.5 mg PO DAILY
azelastine 137 mcg (0.1 %) [place],Non-Aerosol
1 spray INTRANASAL BIDPRN PRN (Reason: allergies)
Saline Nasal 0.65 % Aerosol,[place]
1 spray INTRANASAL BIDPRN PRN (Reason: allergies)
latanoprost 0.005 % Drops
1 drp RIGHT EYE HS Qty: 0 0RF
atorvastatin 40 mg Tablet
40 mg PO QPM Qty: 0 0RF
ferrous sulfate 325 mg (65 mg iron) Tablet
325 mg PO QPM Qty: 0 0RF
levothyroxine 88 mcg Capsule
88 mcg PO DAILY Qty: 0 0RF
PreserVision AREDS 2,148 mcg-113 mg-45 mg-17.4mg Tablet
2 tab PO BID Qty: 0 0RF
metformin 500 mg Tablet
500 mg PO BID Qty: 0 0RF
warfarin 2.5 mg Tablet
2.5 mg PO DAILY Qty: 0 0RF
aspirin 81 mg Tablet,Delayed Release (Dr/Ec)
81 mg PO DAILY Qty: 0 0RF
furosemide 80 mg Tablet
80 mg PO DAILY Qty: 0 0RF
Discontinued
esomeprazole magnesium [Nexium] 20 mg Capsule,Delayed Release(Dr/Ec)
20 mg PO DAILY
clopidogrel 75 mg Tablet
75 mg PO DAILY Qty: 30 11RF
famotidine 20 mg Tablet
20 mg PO HS
Discharge Orders:
Discharge Patient (As Directed); Ordered 05/04/25
Ordered By: Teresa Tucker
Care Plan Goals
Care Plan Goals:
Problem: Readiness for enhanced knowledge related to diagnosis and treatment plan
Goal: Understand your diagnosis and treatment plan needs, including medications if applicable.
Instructions: Know your diagnosis, underlying causes and treatment plan options, including medications if applicable. Consult with your health care team to learn about your diagnosis and treatment plan, including medications if applicable.
Discharge Date and Time
Print Language: SWEDISH
--- NOTE | 2025-05-04 10:45 | W.PN.CD ---
Today's Communication / Plan
-
home meds
OK to discharge
Impression / Plan
-
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
#Severe low flow, low gradient aortic valve stenosis
-Chronic, progressive.
-S/P #29 Hollins MARGO S3 TAVR via right femoral approach.
-Telemetry shows no issues. PPM in place.
-Right access site was oozing with an INR > 2. IV vitamin K given with resolution.
-Resume warfarin and clopidogrel for antithrombotic therapy in the setting of AF and recent PCI.
-TTE pending.
#CAD
-Chronic, stable.
-S/P PCI of the LMCA/RCA (04/01/2026).
-Antithrombotic therapy with clopidogrel/warfarin. Add aspirin until INR > 2.
#HFmEF
-Acute on chronic.
-LVEF 40-45%.
-Furosemide 40 mg IV given yesterday.
-GDMT
-Diuretics: Increase furosemide to 80 mg IV today, resume 80 mg PO tomorrow.
-Beta bev: Metoprolol succinate 50 mg daily.
-ACEI/ARB/ARNi: None.
-MRA: Resume spironolactone 12.5 mg daily.
-SGLT2i: None.
-ICD: PPM in place. ICD not indicated.
-OK to d/c
#PAD
-Chronic.
-Wound noted by podiatry, requesting vascular surgery consult while hospitalized.
#NIDDM
-Chronic, stable.
-Resume metformin tomorrow.
#AF
-Chronic, stable.
-Currently in AF with pacing.
-Rate control with metoprolol.
-CHADS2-Vasc = 5 (CHF, Age x2, DM, vascular disease).
-FFP/Vit K given for elevated INR during procedure and post operative oozing.
-Resume warfarin - 5 mg tonight, then 2.5 mg daily (home dose). Goal INR 2.5.
Subjective/Interval History:
Feels well.
DATA:
DSE, 02/19/2025:
CONCLUSIONS
At rest, there is moderate aortic stenosis. Mildly reduced ejection fraction
at 45-50% with mild hypokinesis of the distal inferior and apical inferoseptal
wall.
With Dobutamine infusion, EF globally increases to 60% by visual estimation.
The wall motion abnormalities in the distal inferior and apical inferoseptal
thomson consistent with infarction. Additionally at high dose infusion, the
distal anteroseptal thomson appear hypokinetic consistent with ischemia.
At all infusion levels, findings are consistent with moderate aortic stenosis.
No prior study available for comparison.
Cardiac Catheterization, 02/22/2025:
CONCLUSIONS:
1. Right dominant circulation with a densely calcified, 80% lesion in the ostium of the RCA and a poorly visualized, 40-50% ostial left main coronary artery lesion with dampening on catheter engagement and minimal luminal area of 5.7 mm� on
intravascular ultrasound.
2. Severely elevated filling pressures (LVEDP = 26 mmHg, PCWP = 32 mmHg at 97.5 kg).
3. Moderate to severe low-flow, low gradient aortic valve stenosis with myocardial reserve (mean gradient 34 mmHg, aortic valve area 0.75 cm�, cardiac index 2.37 L/min/m� at dobutamine 20 mcg/kg/min).
4. 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
Cardiac Catheterization/PCI, 04/01/2025:
CONCLUSIONS
1. Right dominant circulation with a 70% lesion in the ostium of the left main coronary artery status post successful IVUS guided PCI (Medtronic [place] 4.5 x 12 BRIAN, postdilated with a 4.5 NC balloon), a 20-30% lesion in the distal half of
the left main coronary artery and an 80%, densely calcified ostial right coronary lesion status post successful intracoronary lithotripsy (shockwave 3.5 x 12 lithotripsy balloon) and IVUS guided PCI (Medtronic [place] 4.0 x 15 BRIAN, postdilated
with a 4.0 NC balloon throughout and a 4.5 NC balloon in the proximal margin) with reduction in the left main stenosis to 0% in the ostial right coronary artery stenosis to 10%, maintaining NITISH-3 flow in both vessels.
2. Moderate to severe low-flow, low gradient aortic valve stenosis with myocardial reserve on prior study.
TAVR, 05/02/2025:
Conclusions:
1. Successful placement of #29 Margo S3 Ultra aortic valve via right transfemoral approach with no acute complications.
2. Acute on chronic heart failure with elevated filling pressures (LVEDP = 29 at 96.2 kg).
Intraprocedural TTE, 05/02/2025:
CONCLUSIONS
Normal left ventricular chamber size. Mild concentric left ventricular
hypertrophy. Mildly reduced left ventricular systolic function. Paradoxical
septal motion. LVEF 40%.
Normal right ventricular size and function. Pacer wire seen in right ventricle.
29 mm Hollins transcatheter aortic valve replacement. Peak/mean gradients
across the aortic valve are 5/3 mmHg respectively. No aortic regurgitation is
seen.
No pericardial effusion.
Physical Exam
Vital Signs/Labs
Vital Signs
Temp Pulse Resp BP Pulse Ox
97.6 F 76 20 115/67 100
05/04/25 11:18 05/04/25 11:18 05/04/25 11:18 05/04/25 11:18 05/04/25 11:18
05/03/25 05/04/25 05/05/25
06:59 06:59 06:59
Actual Weight 207 lb 0.225 oz 208 lb 1.862 oz
05/04/25 03:16
05/04/25 03:16
PT 17.6 Sec (11.4-14.6) H 05/04/25 03:16
INR 1.42 05/04/25 03:16
APTT 42.8 Sec (23.4-35.0) H 04/23/25 08:26
Magnesium 1.8 mg/dl (1.6-2.3) 05/03/25 03:27
04/23/25
08:26
Wia-X-Iyngexigext Pept [id number]
Physical Exam
Constitutional: No acute distress and Comfortable
EENT: Anicteric
Cardiovascular: Rhythm/rate is irregular
Respiratory: Respiratory effort normal and Lungs clear to auscul.
GI: Soft
Neuro/Psych: Alert and Oriented
Data Reviewed
-
Date of Service: May 04, 2025
Medical Decision Making: Reviewed Test Results
EKG: Tracing Personally Visualized and interpreted (intermittent pacing )
Echo: Tracing Personally Visualized and interpreted
Labs: Labs Reviewed by me
[2025-05-04 11:18] VITALS: BP 115/67
== END 2025-05-04 12:00 | disposition home or self-care (01) | DRG 266 ==
LOC: IVU 06:41
PROVIDERS: Clinical Nurse Specialist Acute Care; Nurse Practitioner; Nurse Practitioner Acute Care; Physician Assistant Medical; ADMITTING PHYSICIAN Thoracic Surgery (Cardiothoracic Vascular Surgery); FAMILY PHYSICIAN Family Medicine; OTHER PHYSICIAN Internal Medicine Cardiovascular Disease; OTHER PHYSICIAN Surgery Vascular Surgery
PROC: 30233K1 Transfusion of Nonautologous Frozen Plasma into Peripheral Vein, Percutaneous Approach (ICD-10-PCS; 2025-05-02)
PROC: 02RF38Z Replacement of Aortic Valve with Zooplastic Tissue, Percutaneous Approach (ICD-10-PCS; 2025-05-02)
DX: I35.0 Nonrheumatic aortic (valve) stenosis (principal); Z00.6 Encounter for examination for normal comparison and control in clinical research program; I50.43 Acute on chronic combined systolic (congestive) and diastolic (congestive) heart failure; D68.32 Hemorrhagic disorder due to extrinsic circulating anticoagulants; L76.22 Postprocedural hemorrhage of skin and subcutaneous tissue following other procedure; I48.20 Chronic atrial fibrillation, unspecified; E87.6 Hypokalemia; T45.515A Adverse effect of anticoagulants, initial encounter; T45.525A Adverse effect of antithrombotic drugs, initial encounter; T39.015A Adverse effect of aspirin, initial encounter; E11.621 Type 2 diabetes mellitus with foot ulcer; L97.529 Non-pressure chronic ulcer of other part of left foot with unspecified severity; E11.40 Type 2 diabetes mellitus with diabetic neuropathy, unspecified; E11.51 Type 2 diabetes mellitus with diabetic peripheral angiopathy without gangrene; R33.8 Other retention of urine; I25.10 Atherosclerotic heart disease of native coronary artery without angina pectoris; K21.9 Gastro-esophageal reflux disease without esophagitis; I11.0 Hypertensive heart disease with heart failure; E78.00 Pure hypercholesterolemia, unspecified; E03.9 Hypothyroidism, unspecified; H40.9 Unspecified glaucoma; Y83.8 Other surgical procedures as the cause of abnormal reaction of the patient, or of later complication, without mention of misadventure at the time of the procedure; Z95.0 Presence of cardiac pacemaker; Z92.21 Personal history of antineoplastic chemotherapy; Z95.5 Presence of coronary angioplasty implant and graft; Z79.84 Long term (current) use of oral hypoglycemic drugs; Z79.01 Long term (current) use of anticoagulants; Z79.02 Long term (current) use of antithrombotics/antiplatelets; Z79.82 Long term (current) use of aspirin; Z85.46 Personal history of malignant neoplasm of prostate
CPT/HCPCS: 93308; 33361; 36415; 71045; 71046; 80048; 80053; 81003; 81015; 82248; 82962; 83036; 83735; 83880; 85025; 85027; 85347; 85610; 85730; 86850; 86900; 86901; 87070; 93005; 93321; 93325; 93922; 93925; C1760; C1769; C1894; P9059; Q9967

== ENCOUNTER → 2025-05-28 08:35 | Outpatient (REF) | payer MEDICARE, OTHER, SELFPAY | LOC: RCS 08:35 | PROVIDERS: ATTENDING PHYSICIAN Nurse Practitioner Acute Care; FAMILY PHYSICIAN Family Medicine | DX: Z95.2 Presence of prosthetic heart valve (principal) | CPT/HCPCS: 93306 ==

== ENCOUNTER 2025-05-31 05:54 | Day surgery (SDC) | payer MEDICARE, OTHER, SELFPAY ==
[2025-05-31] VITALS (26 sets, daily range): BP systolic 99–151; BP diastolic 60–120; BMI 25.2
[2025-05-31 06:50] LABS: Hematocrit 33.9 % (39.0-52.0); Hemoglobin 10.9 g/dL (13.0-18.0); Mean Corp Hgb Conc. 32.2 g/dL (33.0-37.0); Mean Corpuscular Volume 76.4 fL (80.0-94.0); Platelet Count 354 10^3/uL (130-400); Red Cell Dist. Width 20.0 % (11.5-14.5)
[2025-05-31 06:53] LABS: Glucose - Point of Care 103 mg/dl (70-99)
[2025-05-31] MEDS: NSS 278 IV (07:00)
[2025-05-31 07:02] LABS: INR 1.19; PT 15.6 Sec (11.4-14.6)
[2025-05-31 07:03] LABS: APTT 31.0 Sec (23.4-35.0)
[2025-05-31 07:13] LABS: Blood Urea Nitrogen 16 mg/dl (9-20); Calcium 9.3 mg/dl (8.4-10.2); Carbon Dioxide 27 mmol/L (22-30); Chloride 98 mmol/L (98-107); Estimated Creatinine Clearance 59 ml/min; Glucose 106 mg/dl (70-99); Potassium 3.6 mmol/L (3.5-5.1); Sodium 136 mmol/L (135-145); eGFR > 60.00
--- NOTE | 2025-05-31 07:33 | W.SUR.PREOP ---
Pre-Operative Surgical Note
-
I have examined this patient prior to the performance of the scheduled procedure.
The patient's condition is unchanged from the time of the current History and
Physical and the patient is able to undergo the scheduled procedure.
[2025-05-31 09:30] LABS: ACT-LR - POC 284 Seconds (116-155)
[2025-05-31 09:38] LABS: Glucose - Point of Care 118 mg/dl (70-99)
--- NOTE | 2025-05-31 09:58 | W.SUR.POST ---
Surgical Immediate Post Op
Note
Pre Op Diagnosis: Critical limb ischemia
Post Op Diagnosis: Critical limb ischemia
Procedure Performed: LLE angiogram via antegrade SFA access, intravascular lithotripsy with Javelin system, angioplasty of peroneal artery.
Primary Surgeon: Walker Dawn III, MD
Secondary Surgeons: Bay Prescott MD
Anesthesia: see anesthesia report
Estimated Blood Loss: 2 cc
Fluids: see anesthesia report
Drains/Shunts: NA
Specimens/Cultures: NA
Doppler/Duplex/Angio (Y/N): Y
Complications: none
Operative Findings: LLE angiogram via antegrade SFA access, intravascular lithotripsy with Javelin system, angioplasty of peroneal artery.
[2025-05-31 10:09] LABS: Glucose - Point of Care 125 mg/dl (70-99)
[2025-05-31] MEDS: NSS 1000 IV (11:25)
--- NOTE | 2025-05-31 13:02 | OR.RPT ---
Operative Report
Operative Report
Date of Operation: 05/31/2025
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
Procedure:
1.) Intravascular lithotripsy to left peroneal artery stenosis ([place])
2.) Balloon angioplasty of left peroneal artery stenosis (3.5 mm x 40 mm)
3.) Diagnostic left lower extremity arteriogram
4.) Intravascular ultrasound of the TP trunk and peroneal artery
5.) Ultrasound-guided percutaneous antegrade access to the left common femoral artery
6.) Ultrasound-guided percutaneous retrograde pedal access, left foot
7.) Failed attempt to cross calcified AT and PT occlusions
Surgeon: Walker Dawn III, MD
Clinic Nurse: Bay Prescott MD PGY-6
Anesthesia: Sedation with local
Fluoroscopy:
47.7 min
114 mGy
19.36 gy.cm2
Complications: None
Estimated Blood Loss: Less than 20 cc
History and Indications for Procedure: 85-year-old male with multiple medical comorbidities who presents with a nonhealing left hallux ulceration. He had abnormal noninvasive arterial studies and was brought to the operating room for arteriogram
and possible revascularization
Procedure in Detail: Valentín Ruff was correctly identified and placed supine on the operating table. After adequate induction of anesthesia the bilateral groins were prepped and draped in the usual sterile fashion. A timeout was performed with the
nursing and anesthesia staff confirming the patient's identity as well as the nature and laterality of the procedure.
The left common femoral artery was identified under ultrasound guidance. The artery was patent. The superior and inferior aspects of the femoral head were identified with radiographic guidance and marked at the skin level. The proposed puncture site
was infiltrated with local anesthesia. Under ultrasound guidance we accessed the left common femoral artery with a micropuncture needle in an antegrade direction, directed the wire down the superficial femoral artery and then upsized to a 5 Fr
sheath over a Bentson wire. A diagnostic left lower extremity arteriogram was then performed which demonstrated the following:
LEFT LOWER EXTREMITY:
Superficial femoral artery: Patent with no stenosis identified
Popliteal artery: Patent with no stenosis identified
Anterior tibial artery: Patent short stump but then occluded thereafter. Long segment occlusion. Some reconstitution of the dorsalis pedis artery in the foot
Tibioperoneal trunk: Patent
Peroneal artery: Patent. Focal short segment high-grade stenosis in the proximal to mid aspect.
Posterior tibial artery: Patent proximal and mid segments with diffuse scattered disease. Heavily calcified and occluded distally at the ankle. Limited reconstitution of a plantar branch in the foot
ENDOVASCULAR INTERVENTION: Systemic heparin was administered. Exchanged out for a 5 Fr 45 cm sheath over a Taaz wire. Selected the peroneal artery under roadmap guidance with Quickcross catheter and glidewire. The peroneal artery stenosis was
crossed with a Quickcross and Glidewire. The wire and catheter were advanced into the distal peroneal artery and subtraction angio confirmed proper position in the true lumen. Exchanged out for a 0.014 wire. Over the 014 wire brought into position
the IVUS catheter. Intravascular ultrasound was performed on the tibioperoneal trunk and peroneal artery. Reference diameters were measured (3 mm peroneal distal to the stenosis; 3.8 mm TPT). The stenosis was calcified. Due to the heavily
calcified nature of the peroneal disease and in an effort to successfully cross the lesion, modify the calcium and achieve luminal gain with endovascular intervention I elected to proceed with intravascular lithotripsy with a Shockwave [place]
catheter. The Javel[place] catheter was brought into position under radiographic guidance over the 0.014 wire. The [place] catheter was advanced through the peroneal artery and across the disease while simultaneously delivering lithotripsy pulses. 60
pulses were delivered with the plan to preserve additional pulses for remaining tibial disease if we were successful at crossing. Subsequent arteriogram demonstrated significant luminal gain. I then followed this with a 3.5 mm x 40 mm angioplasty
balloon. The balloon was positioned in the desired location under roadmap guidance, inflated to nominal pressure and held in place for 3 minutes. Subsequent arteriogram demonstrated an excellent technical result with brisk flow through a widely
patent peroneal artery and no residual stenosis identified.
Next I selected the posterior tibial artery with a Quickcross and Glidewire. We were able to navigate through the posterior tibial artery down to the point of occlusion towards the distal calf/ankle. The artery was very heavily calcified at this
location. Despite multiple attempts with 0.014 wires and 0.014 catheters I was unsuccessful at crossing the heavily calcified posterior tibial artery occlusion. We then abandoned additional attempts.
Next we focused on the anterior tibial artery to see if we could recanalize this vessel. Under roadmap guidance I selected the anterior tibial artery stump from above with the Quickcross catheter and Glidewire. I was unable to successfully
navigate through the anterior tibial artery occlusion from above despite multiple attempts. I then prepped and draped the left foot in the usual sterile fashion. Under ultrasound guidance I identified the distal anterior tibial artery and dorsalis
pedis artery at the ankle sulcus. Under ultrasound guidance I accessed the distal anterior tibial artery retrograde with a micropuncture and placed a 4 Spanish sheath. I attempted to cross the anterior tibial artery occlusion retrograde using a
0.014 wire and Quickcross catheter but again was unsuccessful despite multiple attempts.
At this point I abandoned additional attempts to cross the anterior tibial artery and posterior tibial artery occlusions. Completion arteriogram demonstrated a widely patent peroneal artery with flow into the foot through peroneal artery
collaterals at the ankle.
The procedure was concluded. Protamine was administered. The retrograde pedal access sheath was pulled and direct manual pressure was held over the puncture site until hemostasis was achieved. The antegrade sheath in the left groin was secured in
place with the plan to pull it in the recovery room.
The patient tolerated the procedure well and was taken to the recovery area in stable condition.
Attestation: I was present and responsible for the entire procedure.
Signed:
Walker Dawn III, MD
Vascular Surgery
[facility]
== END 2025-05-31 15:35 | disposition home or self-care (01) ==
LOC: CATH 05:54
PROVIDERS: ATTENDING PHYSICIAN Surgery Vascular Surgery; OTHER PHYSICIAN Internal Medicine Cardiovascular Disease; PRIMARYCARE PHYSICIAN Family Medicine
DX: I70.245 Atherosclerosis of native arteries of left leg with ulceration of other part of foot (principal); L97.529 Non-pressure chronic ulcer of other part of left foot with unspecified severity; I11.0 Hypertensive heart disease with heart failure; I50.9 Heart failure, unspecified; Z79.02 Long term (current) use of antithrombotics/antiplatelets; Z79.82 Long term (current) use of aspirin; Z79.84 Long term (current) use of oral hypoglycemic drugs
CPT/HCPCS: 37252; C9772; 75710; 80048; 82962; 85027; 85610; 85730; C1725; C1769; C1894; Q9967

== ENCOUNTER → 2025-06-24 08:34 | Outpatient (REF) | payer MEDICARE, OTHER, SELFPAY | LOC: RAD 08:34 | PROVIDERS: ATTENDING PHYSICIAN Surgery Vascular Surgery; FAMILY PHYSICIAN Family Medicine | DX: I77.9 Disorder of arteries and arterioles, unspecified (principal) | CPT/HCPCS: 93922; 93925 ==

== ENCOUNTER → 2025-09-16 08:52 | Outpatient (REF) | payer MEDICARE, OTHER, SELFPAY | LOC: RAD 08:52 | PROVIDERS: ATTENDING PHYSICIAN Registered Nurse; FAMILY PHYSICIAN Family Medicine | DX: I70.292 Other atherosclerosis of native arteries of extremities, left leg (principal); I77.9 Disorder of arteries and arterioles, unspecified | CPT/HCPCS: 93922 ==

== ENCOUNTER → 2025-09-19 12:44 | Outpatient (REF) | payer MEDICARE, OTHER, SELFPAY | LOC: RAD 12:44 | PROVIDERS: ATTENDING PHYSICIAN Surgery Vascular Surgery; FAMILY PHYSICIAN Family Medicine | DX: Z01.810 Encounter for preprocedural cardiovascular examination (principal); I77.9 Disorder of arteries and arterioles, unspecified; I70.202 Unspecified atherosclerosis of native arteries of extremities, left leg | CPT/HCPCS: 93922; 93926; 93971 ==

== ENCOUNTER 2025-10-08 08:56 | Inpatient (IN) | payer MEDICARE, OTHER, SELFPAY ==
[2025-10-08] VITALS (12 sets, daily range): BP systolic 121–168; BP diastolic 45–76; BMI 26.6
[2025-10-08 09:25] LABS: Hematocrit 32.4 % (39.0-52.0); Hemoglobin 10.9 g/dL (13.0-18.0); Mean Corp Hgb Conc. 33.6 g/dL (33.0-37.0); Mean Corpuscular Volume 75.3 fL (80.0-94.0); Platelet Count 201 10^3/uL (130-400); Red Cell Dist. Width 16.0 % (11.5-14.5)
[2025-10-08 09:33] LABS: INR 1.29; PT 16.4 Sec (11.4-14.6)
[2025-10-08 09:34] LABS: APTT 32.0 Sec (23.4-35.0)
[2025-10-08 09:39] LABS: Blood Urea Nitrogen 15 mg/dl (9-20); Calcium 9.5 mg/dl (8.4-10.2); Carbon Dioxide 33 mmol/L (22-30); Chloride 98 mmol/L (98-107); Glucose 128 mg/dl (70-99); Potassium 4.7 mmol/L (3.5-5.1); Sodium 137 mmol/L (135-145); eGFR > 60.00
[2025-10-08 10:50] LABS: Glucose - Point of Care 105 mg/dl (70-99)
[2025-10-08 14:34] LABS: ACT-LR - POC > 397 Seconds (116-155)
[2025-10-08 15:01] LABS: ACT-LR - POC 319 Seconds (116-155)
[2025-10-08 16:22] LABS: ACT-LR - POC 231 Seconds (116-155)
[2025-10-08] MEDS: MORPHINE SULFATE 1 MG IV ×2 (17:33→17:41)
--- NOTE | 2025-10-08 17:41 | OR.RPT ---
Operative Report
Operative Report
Date of Operation: 10/08/2025
Pre Op Diagnosis:
Atherosclerosis of [place] arteries of left leg with ulceration of the hallux
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
Chronic total occlusion of artery of the extremities
Type 2 diabetes mellitus with diabetic peripheral angiopathy with gangrene
Post Op Diagnosis:
Atherosclerosis of [place] arteries of left leg with ulceration of the hallux
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
Chronic total occlusion of artery of the extremities
Type 2 diabetes mellitus with diabetic peripheral angiopathy with gangrene
Procedure:
1. 0620T: LimFlow/Transcatheter arterialization of the deep veins, left lower extremity. Endovascular venous arterialization, tibial or peroneal vein, with transcatheter placement of intravascular stent graft(s) and closure by any method, including
percutaneous or open vascular access, ultrasound guidance for vascular access when performed, all catheterization(s) and intraprocedural roadmapping and imaging guidance necessary to complete the intervention, all associated radiological supervision
and interpretation, when performed
2. [id number]: Bypass left posterior tibial artery to lower extremity vein with synthetic substitute, percutaneous approach
3. Balloon angioplasty of plantar vein outflow in left foot (3.5 mm and 4 mm angioplasty balloons)
4. Balloon angioplasty and drug-eluting bioabsorbable scaffold placement to left proximal posterior tibial artery (3.5 mm x 38 mm Abbot Esprit)
5. Balloon angioplasty of left peroneal artery occlusion (3.5 mm angioplasty balloon)
Surgeon: Walker Dawn III, MD
Solar Sales Assessor: Venkatesh Daigle MD PGY2
Anesthesia: General
Complications: None
Estimated Blood Loss: 25 cc
History and Indications for Procedure: 85-year-old male with severe tibial artery and small vessel occlusive disease involving his left foot. He had a nonhealing left hallux ulceration with associated osteomyelitis. There was no option for
traditional endovascular or open revascularization. I recommended transcatheter arterialization of the deep veins for limb preservation.
Procedure in Detail: Valentín Ruff was brought back to the operating room and placed supine on the OR table. General anesthesia was induced. Preoperative antibiotics were given. The patient�s left lower extremity was prepped and draped in the usual
sterile fashion.
Patient was placed in reverse Trendelenburg position. A sterile tourniquet was applied to the left proximal calf and inflated while obtaining venous access. We obtained ultrasound guided percutaneous access in the Lateral Plantar Vein using a
micropuncture technique. A 4Fr sheath was placed. A 0.014 Glidewire advantage was advanced through the Lateral Plantar Vein into the Posterior Tibial Vein.
Attention was then turned to the patient�s left groin. We first obtained antegrade percutaneous access in the right common femoral artery using fluoroscopic and ultrasound guidance with a micropuncture needle. A 7Fr 45 cm distal sheath was inserted
over a Startcappsson wire, which was advanced into the superficial femoral artery (SFA). We obtained a left lower extremity angiogram, which demonstrated the following:
Patent superficial femoral artery and popliteal artery
Anterior tibial artery stent patent but occluded thereafter with no distal reconstitution
Posterior tibial artery patent proximally and then diffusely diseased with heavy calcification and distal occlusion identified
Focal peroneal artery occlusion with distal reconstitution identified
Systemic heparin was administered. We used a Quickcross catheter and 0.014 wire to select the posterior tibial artery. We advanced the LimFlow ARC� Arterial Catheter into the proximal posterior tibial artery. We advanced the LimFlow V-Ceiver� Venous
Catheter to the Posterior Tibial vein from the Lateral Plantar Vein sheath at the same approximate level. The fluoroscopy unit was rotated in such a way as to overlay the crossing device and snare. The LimFlow crossing device (ARC) needle was
deployed into the Posterior Tibial Vein. A 0.014 wire was advanced through the crossing device into the venous snare (V-Ceiver) where it was captured and subsequently withdrawn
through the venous sheath, providing through and through wire access. The arteriovenous connection was ballooned with a 3 mm x40 mm balloon. Next, the forward cutting LimFlow Vector� Valvulotome was advanced from the arterial sheath across the
arteriovenous connection into the Posterior Tibial Vein. The valvulotome was deployed and advanced down the vein in order to lyse the venous valves to the distal-most aspect of the Lateral Plantar Vein. A 5 mm x 220 mm balloon was used to
angioplasty the donor vein to confirm adequate valve effacement and absence of stricture within the donor vein in preparation for stent placement. We then deployed two LimFlow cylindrical stent grafts (5.5mm x 150mm and 5.5mm x 200mm) in the
Posterior Tibial Vein from the ankle extending proximally up the calf. An additional 5.5 mm x 150 mm stent was needed proximally for additional coverage length. Next the tapered conical stent (3.5-5.5mm x 60 mm) was deployed proximally across the
level of the arteriovenous connection. The stent grafts were post-dilated to 3.5mm in the arterial segment and 5 mm in the venous segment.
The plantar sheath was retracted to allow for wiring of the metatarsal aspect of the Lateral Plantar Vein. Using a 0.014 Quickcross catheter in the Glidewire advantage I was able to navigate through the pedal venous loop. I subsequently ballooned
the entire pedal venous loop with a 3.5 mm angioplasty balloon. Multiple inflations were performed to treat the entire length of the pedal venous loop holding each inflation at nominal pressure for 2 minutes. A 4 mm angioplasty balloon was placed
in the Lateral Plantar Vein outflow distal to the stent and inflated to nominal pressure. The balloon was held in place for a 2-minute inflation and then deflated and removed.
A completion angiogram of the LimFlow/TADV circuit demonstrated widely patent Posterior Tibial stents and robust filling of the pedal venous system. The proximal [place] posterior tibial artery demonstrated a somewhat hazy/fluffy appearance and I
was concerned for a dissection at this location. I treated this with a 3.5 mm x 38 mm Adan Esprit drug-eluting bioabsorbable scaffold. This was positioned in the desired location and deployed by inflating the balloon to nominal pressure.
Subsequent arteriogram demonstrated an excellent technical result with a widely patent posterior tibial artery inflow and no filling defects or stenosis identified.
Under roadmap guidance using the Quickcross catheter and 0.014 Glidewire advantage I navigated through the peroneal artery occlusion. I used a 3.5 mm angioplasty balloon positioned under roadmap guidance to treat the peroneal artery occlusion.
The balloon was inflated to nominal pressure and held in place for a 2-minute inflation. Subsequent arteriogram demonstrated an excellent technical result with a widely patent peroneal artery and no significant residual stenosis identified.
Satisfied with this result we then concluded the procedure. Protamine was administered. The left femoral sheath was removed, and manual pressure was held over the puncture site until hemostasis was obtained. The pedal sheath was removed and
venous access hemostasis was obtained. Dry sterile dressings were applied.
Handheld Doppler was performed at the distal Posterior Tibial Vein, Lateral Plantar Vein, and outflow Greater Saphenous Vein and easily audible pulsatile signals were heard at all points.
Attestation: I was present and responsible for the entire procedure
Signed:
Walker Dawn III, MD
Vascular Surgery
[facility]
[2025-10-08 17:49] LABS: Glucose - Point of Care 146 mg/dl (70-99)
[2025-10-08 18:00] LABS: Hematocrit 29.3 % (39.0-52.0); Hemoglobin 10.4 g/dL (13.0-18.0); Mean Corp Hgb Conc. 35.5 g/dL (33.0-37.0); Mean Corpuscular Volume 73.1 fL (80.0-94.0); Platelet Count 173 10^3/uL (130-400); Red Cell Dist. Width 15.9 % (11.5-14.5)
[2025-10-08 18:23] LABS: Blood Urea Nitrogen 16 mg/dl (9-20); Calcium 8.7 mg/dl (8.4-10.2); Carbon Dioxide 27 mmol/L (22-30); Chloride 102 mmol/L (98-107); Estimated Creatinine Clearance 59 ml/min; Glucose 130 mg/dl (70-99); Potassium 4.4 mmol/L (3.5-5.1); Sodium 135 mmol/L (135-145); eGFR > 60.00
[2025-10-08 18:25] LABS: INR 1.37; PT 17.1 Sec (11.4-14.6)
[2025-10-08 18:26] LABS: APTT 32.6 Sec (23.4-35.0)
--- NOTE | 2025-10-08 19:00 | PTCARENOTE ---
pt received from PACU to room 2117 @ 1210. pt transferred from stretcher to bed w/assist of 3. pt educated concerning activity restrictions and laying flat and keeping leg straight. pt verbalized understanding. Telemetry placed, reading
V-paced 70's. Left groin 2x2 w/tegaderm dressing clean and dry, flat, +femoral pulse. bottom of left foot w/2x2 w/tegaderm dressing clean and dry. bounding pedal pulse and posterior tib pulse weak but palpable. Dawn catheter patent and draining
yellow urine. report passed onto next shift. care ongoing.
[2025-10-08] MEDS: NSS 500 IV (21:19)
[2025-10-08] MEDS: COUMADIN 2.5 MG PO (21:25)
[2025-10-08] MEDS: LASIX 80 MG PO (21:50)
[2025-10-08] MEDS: LIPITOR 40 MG PO (21:51)
[2025-10-08] MEDS: XALATAN OPHTHALMIC SOLUTION 1 DROP RIGHT EYE (21:52)
[2025-10-08 22:12] LABS: Glucose - Point of Care 162 mg/dl (70-99)
[2025-10-09] MEDS: HEPARIN 5000 UNITS SC ×2 (00:05→08:53)
[2025-10-09 03:19] VITALS: BP 133/56
[2025-10-09 05:29] VITALS: BMI 26.5
[2025-10-09] MEDS: SYNTHROID 88 MCG PO (05:57)
[2025-10-09 07:03] LABS: INR 1.40; PT 17.4 Sec (11.4-14.6)
[2025-10-09 07:04] LABS: APTT 32.2 Sec (23.4-35.0)
[2025-10-09 07:12] LABS: Hematocrit 28.2 % (39.0-52.0); Hemoglobin 9.6 g/dL (13.0-18.0); Mean Corp Hgb Conc. 34.0 g/dL (33.0-37.0); Mean Corpuscular Volume 74.2 fL (80.0-94.0); Platelet Count 218 10^3/uL (130-400); Red Cell Dist. Width 16.2 % (11.5-14.5)
[2025-10-09 07:19] LABS: Glucose - Point of Care 140 mg/dl (70-99)
[2025-10-09 07:22] LABS: Blood Urea Nitrogen 18 mg/dl (9-20); Calcium 8.6 mg/dl (8.4-10.2); Carbon Dioxide 28 mmol/L (22-30); Chloride 103 mmol/L (98-107); Estimated Creatinine Clearance 49 ml/min; Glucose 119 mg/dl (70-99); Potassium 3.9 mmol/L (3.5-5.1); Sodium 137 mmol/L (135-145); eGFR 59.63
[2025-10-09 07:37] VITALS: BP 141/53
--- NOTE | 2025-10-09 07:44 | W.PN.VS ---
Addendum entered and electronically signed by Fabian Serrano MD 10/09/25 12:16:
Seen and examined earlier this a.m. with DINAH Morocho. This is a late entry. Patient was without complaints. Left groin puncture site flat. Left foot is warm. Left foot puncture site flat. Excellent Doppler signals at marked sites. Plan/as
discussed and noted below.
Original Note:
Today's Communication / Plan
-
Seen and assessed with Dr. Serrano
Assessment/Plan
-
Postop day 1 after left limflow
Plan:
DC Dawn
Out of bed/ambulate
DC IV fluids
Lovenox bridge
Discharge later this morning
Subjective Data
-
Date of Service: October 09, 2025
Patient seen at bedside this a.m. with Dr. Serrano. Patient offers no complaints at this time. No events overnight. Patient very excited to get up out of bed this morning
Objective Data
-
Vital Signs
Temp Pulse Resp BP Pulse Ox
98.2 F 74 18 141/53 99
10/09/25 07:37 10/09/25 07:37 10/09/25 07:37 10/09/25 07:37 10/09/25 07:37
Intake and Output
10/08/25 10/09/25 10/10/25
06:59 06:59 06:59
Intake Total 600 / 600
Output Total 525 / 525
Balance 75 / 75
Intake:
Oral fluids 600 / 600
Output:
Urine, Dawn 525 / 525
Lab Results
10/09/25 06:27
10/09/25 06:27
Calcium 8.6 mg/dl (8.4-10.2) 10/09/25 06:27
Physical Exam
-
AAO x 3
No tachypnea on room air
No tachycardia
Abdomen soft
Groin puncture site clean, dry, intact, soft, flat
Plantar puncture site clean, soft, flat
+ Doppler signals at all marked locations
[2025-10-09] MEDS: NOVOLOG FLEXPEN-LOW RESISTANCE SC (08:52)
[2025-10-09] MEDS: TOPROL XL 50 MG PO (08:53)
[2025-10-09] MEDS: PROTONIX 40 MG PO (08:54)
[2025-10-09] MEDS: FEOSOL 325 MG PO (08:54)
[2025-10-09] MEDS: ALDACTONE 12.5 MG PO (08:54)
[2025-10-09] MEDS: PLAVIX 75 MG PO (08:54)
[2025-10-09] MEDS: LASIX 40 MG PO (08:57)
[2025-10-09 11:22] LABS: Glucose - Point of Care 208 mg/dl (70-99)
[2025-10-09 11:27] VITALS: BP 132/52
[2025-10-09] MEDS: NOVOLOG FLEXPEN-LOW RESISTANCE 2 UNITS SC (11:46)
--- NOTE | 2025-10-09 13:19 | CM ---
CM met with pt bedside
Pt resides with his spouse
Pt is POD#1 limflow and dc order noted
Pt ambulates with a walking stick
No dc needs noted
Pt has contacted spouse for ride home already
IMM from 10/08 remains valid
Discharge Disposition- home, no needs, spouse transport
[2025-10-09] MEDS: LOVENOX 85 MG SC (15:08)
[2025-10-09 15:15] VITALS: BP 112/40
--- NOTE | 2025-10-14 09:28 | PN.CDI ---
CDI
- -
CDI:
Physician Documentation Request
Admit Date: 10/08/25 08:56
Dear Doctor,
Please review the following and provide your response in the progress notes.
Clinical Indicators:
Per the OR Report, 'A completion angiogram of the LimFlow/TADV circuit demonstrated widely patent Posterior Tibial stents and robust filling of the pedal venous system. The proximal [place] posterior tibial artery demonstrated a somewhat hazy/fluffy
appearance and I was concerned for a dissection at this location. I treated this with a 3.5 mm x 38 mm Adan Esprit drug-eluting bioabsorbable scaffold. This was positioned in the desired location and deployed by inflating the balloon to nominal
pressure. Subsequent arteriogram demonstrated an excellent technical result with a widely patent posterior tibial artery inflow and no filling defects or stenosis identified.'
Please clarify the following:
Posterior tibial artery dissection is clinically significant and is a complication of the surgery
Posterior Tibial artery dissection is clinically significant but is inherent to/unavoidable during the surgery and is not a complication
Posterior Tibial Artery dissection was not clinically significant
Other
Use of terms such as suspected, likely, concern for, or probable (associated with a specific diagnosis that is being evaluated, monitored, or treated as if it exists) are acceptable and can be coded in the inpatient setting, when documented at the
time of discharge.
Thank you,
Bernice RODRIGUEZ, RN, CCDS
CDI Specialist
Please use your independent medical judgment in providing your response.
--- NOTE | 2025-10-14 11:07 | W.PN.UPDATE ---
Update Note
Progress Note Update
CDI:
Physician Documentation Request
Admit Date: 10/08/25 08:56
Please review the following and provide your response in the progress notes.
Clinical Indicators:
Per the OR Report, 'A completion angiogram of the LimFlow/TADV circuit demonstrated widely patent Posterior Tibial stents and robust filling of the pedal venous system. The proximal [place] posterior tibial artery demonstrated a somewhat hazy/fluffy
appearance and I was concerned for a dissection at this location. I treated this with a 3.5 mm x 38 mm Adan Esprit drug-eluting bioabsorbable scaffold. This was positioned in the desired location and deployed by inflating the balloon to nominal
pressure. Subsequent arteriogram demonstrated an excellent technical result with a widely patent posterior tibial artery inflow and no filling defects or stenosis identified.'
Please clarify the following:
Posterior Tibial Artery dissection was not clinically significant
== END 2025-10-09 15:38 | disposition home or self-care (01) | DRG 253 ==
LOC: 2 SOUTH 08:56
PROVIDERS: Nurse Practitioner; ADMITTING PHYSICIAN Surgery Vascular Surgery; PRIMARYCARE PHYSICIAN Family Medicine
PROC: 041S3JS Bypass Left Posterior Tibial Artery to Lower Extremity Vein with Synthetic Substitute, Percutaneous Approach (ICD-10-PCS; 2025-10-08)
PROC: X27 New Technology, Cardiovascular System, Dilation (ICD-10-PCS; 2025-10-08)
PROC: 047U3ZZ Dilation of Left Peroneal Artery, Percutaneous Approach (ICD-10-PCS; 2025-10-08)
DX: E11.52 Type 2 diabetes mellitus with diabetic peripheral angiopathy with gangrene (principal); I70.262 Atherosclerosis of native arteries of extremities with gangrene, left leg; M86.662 Other chronic osteomyelitis, left tibia and fibula; I70.92 Chronic total occlusion of artery of the extremities; E11.69 Type 2 diabetes mellitus with other specified complication; L97.529 Non-pressure chronic ulcer of other part of left foot with unspecified severity
CPT/HCPCS: 0620T; 80048; 82962; 85027; 85610; 85730; C1725; C1769; C1874; C1889; C1894; Q9967

== ENCOUNTER → 2025-10-24 14:30 | Outpatient (REF) | payer MEDICARE, OTHER, SELFPAY | LOC: RAD 14:30 | PROVIDERS: ATTENDING PHYSICIAN Surgery Vascular Surgery; FAMILY PHYSICIAN Family Medicine | DX: Z09 Encounter for follow-up examination after completed treatment for conditions other than malignant neoplasm (principal); I77.9 Disorder of arteries and arterioles, unspecified; I73.9 Peripheral vascular disease, unspecified; Z95.820 Peripheral vascular angioplasty status with implants and grafts | CPT/HCPCS: 93922; 93926; 93971 ==